=== PATIENT | female | born 1935 | race Caucasian/White ===

== ENCOUNTER → 2016-03-06 09:31 | Day surgery (SDC) | payer MEDICARE, BC ==
[~2016-03-06 09:31] MED LIST: Buffered Lidocaine 1% SYR 3ML* 3 ML/SYR SYRINGE INTRADERM ONE; Buffered Lidocaine 1% SYR 3ML* 3 ML/SYR SYRINGE ONE; Clindamycin 900 MG IVPREMIX(* 900 MG/50 ML SDV IV ONE; Famotidine IV* 10 MG/ML 2 ML (20 mg) IV ONE; Famotidine IV* 10 MG/ML 2 ML (20 mg) ONE; HYDROcodone/ACETAMIN 5-325 MG* 1 TAB PO PRN; Ibuprofen TAB* 600 MG PO PRN; Lidocaine 1% INJ* 10 MG/ML 30 ML SDV ONE; Lidocaine 2% MPF* 2 ML VIAL ONE; Midazolam* 1 MG/ML 5 ML VIAL (5 MG) ONE; Ondansetron INJ* 2 MG/ML VIAL IV PRN; PROCHLORPERAZINE INJ 5 MG/ML 2 ML VIAL IV PRN; Propofol* 10 MG/ML 20 ML BTL IV PUSH ONE; fentaNYL* 50 MCG/ML 2 ML VIAL (100 MCG VIAL) IV PRN; fentaNYL* 50 MCG/ML 2 ML VIAL (100 MCG VIAL) ONE; oxyCODONE/Acetamin 5/325 MG* TAB PO PRN
--- NOTE | 2016-03-06 11:49 | SURGPN ---
Brief Operative Note - Surgery Procedures: Procedures OPERATIVE REPORT PRE-OP: Hepatobiliary cancer POST-OP: Same PROCEDURE: Insertion of 8F left chest wall PowerPort SURGEON: MD Memo ANESTHESIA:Local with MAC Dr. Gore ASST: none IVF: min EBL: min SPECIMEN: none DRAIN: none WOUND CLASS: One COMPLICATIONS: none TO PACU
[2016-03-06 12:24] VITALS: BP 136/63
--- NOTE | 2016-03-06 12:32 | RAD ---
HISTORY: Status post port placement COMPARISONS: January 16, 2016 VIEWS:1: Single frontal portable view of the chest at 12:57 AM FINDINGS: LINES AND TUBES: There is a left-sided chest port from a subclavian approach with the tip overlying the cavoatrial junction. CARDIOMEDIASTINAL SILHOUETTE: The cardiomediastinal silhouette is normal for portable technique. PLEURA: The costophrenic angles are sharp. No pleural abnormalities are noted. There is no appreciable pneumothorax. LUNG PARENCHYMA: The right lung nodules noted on previous examinations is not clearly visible on the submitted images. ABDOMEN: The upper abdomen is clear. There is no subphrenic gas. BONES AND SOFT TISSUES: No bone or soft tissue abnormalities are noted. IMPRESSION: STATUS POST CHEST PORT PLACEMENT
--- NOTE | 2016-03-06 13:22 | RAD ---
CPT II Codes: 6045F INDICATION: Liver cancer TECHNIQUE: Intraoperative fluoroscopy was provided during placement of a left subclavian vein Mediport.. FINDINGS: A single spot film partially visualizes the catheter terminating at the cavoatrial junction. Fluoroscopy time: 55 seconds IMPRESSION: As above.
--- NOTE | 2016-03-09 16:05 | OP ---
AMENDED REPORT TO CORRECT DATE OF OPERATION - ESIGNED BEFORE ADJUSTMENT OPERATIVE REPORT: DATE OF OPERATION: 03/06/16 - SDS DATE OF : 39 SURGEON: Macho Hampton MD PSYCHOLOGICAL OPERATIONS: None. ANESTHESIA: Local with monitored anesthesia care. PRE-OP DIAGNOSIS: Hepatobiliary malignancy. POST-OP DIAGNOSIS: Hepatobiliary malignancy. OPERATIVE PROCEDURE: Insertion of a left chest wall 8-[place] PowerPort, placed percutaneously. ESTIMATED BLOOD LOSS: Minimal. IV FLUIDS: Minimal. SPECIMENS: None. WOUND CLASSIFICATION: I. DESCRIPTION OF PROCEDURE: Written informed consent was obtained, the left chest was marked with indelible ink and the preoperative antibiotics were administered. The patient was taken to the operating room, placed in the supine position. Sequential compression devices were placed in the lower extremity. The left and right chest and neck were prepped and draped in the usual sterile fashion. Time-out verification was completed. Next, 1% lidocaine with epinephrine was infiltrated in the left midclavicular area and the patient was placed in Trendelenburg position and an 18-gauge Cook needle was used to puncture the subclavian vein on the first pass underneath the clavicle. A good blood return was noted and the guidewire was inserted without difficulty and confirmed to be in the superior vena cava by fluoroscopy. Next, additional lidocaine was infiltrated on the left anterior chest and a small transverse incision was made several centimeters below the puncture site and a subcutaneous pocket was made inferiorly, large enough to fit the port. A catheter was then tunneled from the pocket to the puncture site and using a sheath dilator system, the catheter was inserted into the central venous system and the tip was placed at the junction of the superior vena cava in the right atrium. There was good blood return from the catheter and it was cut to the appropriate length and attached to the port in usual fashion. The port was placed to the subcutaneous pocket and it flushed nicely and santos blood with a Acosta needle and was subsequently flushed with heparin. The port was secured to the subcutaneous tissue in its pocket with two separate 2-0 Prolene sutures. The hemostasis was assured and the wound was closed with a running 3-0 and 4-0 Polysorb sutures. Steri-Strips and sterile dressings were applied. The patient tolerated the procedure well and was taken to the recovery room in stable condition. Post-procedural chest x-ray showed the catheter to be in good position without evidence of pneumothorax. CC: [facility]; [facility]; [place]* [id number]/[facility] #: [id number] MTDMaxim
== END | disposition home or self-care (01) ==
LOC: OR 09:31
PROVIDERS: ATTEND Surgery
DX: C22.0 Liver cell carcinoma (principal)
CPT/HCPCS: 71010; 76000; C1788; J1642; J2250; J2704; J3010

== ENCOUNTER 2017-09-11 19:34 | Emergency (ER) | payer MEDICARE, BC ==
[2017-09-11] MEDS ORDERED: NS 0.9% 1000 ML* 1,000 ML IV ONE (20:57)
[2017-09-11] MEDS ORDERED: Acetaminophen TAB* 325 MG PO ONE (20:57)
[2017-09-11] MEDS ORDERED: Vancomycin(*) 1,000 MG in NS 0.9% 250 ML* 250 ML IVPB ONE (20:58)
[2017-09-11] MEDS ORDERED: Piperacillin/Tazobac ADVAN(*) 3.375 GM in NS 0.9% 100 ML* 100 ML IVPB ONE (20:58)
[2017-09-11 21:57] LABS: ABS Basophils 0 10^3/ul (0-0.2); ABS Eosinophils 0.1 10^3/ul (0-0.6); ABS Lymphocytes 0.7 10^3/ul (1.0-4.8); ABS Monocytes 0.7 10^3/ul (0-0.8); ABS Neutrophils 5.2 10^3/ul (1.5-7.7); ABS Nucleated RBC 0 10^3/ul; Eosinophil % 1.4 % (0-6); Hematocrit 30 % (35-47); Hemoglobin 10.3 g/dl (12.0-16.0); Lymphocyte % 10.2 % (25-47); Mean Corpuscular HGB Conc 34 g/dl (31-36); Mean Corpuscular Hemoglobin 35 pg (27-31); Mean Corpuscular Volume 103 fL (80-97); Mean Platelet Volume 8.5 um3 (7.4-10.4); Nucleated Red Blood Cells % 0; Platelet Count 115 10^3/ul (150-450); Red Blood Count 2.94 10^6/ul (4.00-5.40); Red Cell Distribution Width 20 % (10.5-15); White Blood Count 6.7 10^3/ul (3.5-10.8)
[2017-09-11 22:06] LABS: INR 0.98 (0.77-1.02)
[2017-09-11 22:16] LABS: EGFR Non-African American 60.2 (>60)
[2017-09-11] MEDS ORDERED: Potassium Chlor TAB* 20 MEQ TAB.ER PO ONE (22:21)
--- NOTE | 2017-09-11 22:53 | ED ---
HPI Febrile Illness - HPI Summary HPI Summary: This is scrleanne Robbcastillo Johnston documenting for attending Dr. Sylvain Fan MD. A 82 y/o female presents to ED c/o fever and intermittent coughing. As per triage, "Patient reports fever, fatigue and generally feeling poor. Last chemo treatment 08/26. Sent by oncology for further evaluation". According to the patient, she has spiked a fever of 106 F, however, it has resolved since as it went down to 100.6 F. Pt denies any vomit and abdominal pain. She describes the cough as "tingling attacks" that comes an goes. Additionally, it was noted that sneezing has been coupled with the cough. Patient does not take any allergy meds or any current medications. Blood tested on Wednesday. - History of Current Complaint Chief Complaint: EDFever Time Seen by Provider: 09/11/17 20:38 Hx Obtained From: Patient Onset/Duration: Started Days Ago Timing: Intermittent Current Severity: None Pain Intensity: 0 Pain Scale Used: 0-10 Numeric Aggravating Factors: Nothing Alleviating Factors: Nothing Associated Signs and Symptoms: Cough, Other: - Fever and sneezing - Allergy/Home Medications Allergies/Adverse Reactions: Allergies Allergy/AdvReac Type Severity Reaction Status Date / Time latex Allergy Severe Rash And Verified 07/20/17 14:51 Itching Perfume Allergy Severe Vomiting Verified 12/02/16 10:23 phenylbutazone Allergy Severe Swelling Verified 07/20/17 14:52 Of Face,Lips,& Throat Sulfa (Sulfonamide Allergy Intermediate Rash Verified 07/20/17 14:53 Antibiotics) Adhesive Tape Allergy Rash Verified 12/02/16 10:24 soy AdvReac Intermediate See Comment Verified 07/20/17 14:55 cats, dogs Allergy Intermediate Sneezing Uncoded 12/02/16 10:25 dairy Allergy Intermediate GI Upset Uncoded 12/02/16 10:26 SULFONAMIDE EYE DROP Allergy Intermediate Eyes Uncoded 12/02/16 10:26 Itchy/Swollen/Red/Watery tomatoes Allergy Intermediate Rash And Uncoded 12/02/16 10:27 Itching cris Allergy Mild Tingling Uncoded 12/02/16 10:27 beer Allergy Tingling Uncoded 12/02/16 10:28 TEGADERM Allergy Rash And Uncoded 12/02/16 10:28 Itching PMH/Surg Hx/FS Hx/Imm Hx Endocrine/Hematology History: Reports: Hx Thyroid Disease Denies: Hx Diabetes Cardiovascular History: Denies: Hx Congestive Heart Failure, Hx Hypertension, Hx Pacemaker/ICD Respiratory History: Reports: Other Respiratory Problems/Disorders - LUNG BIOPSY 01/15/16 Denies: Hx Asthma, Hx Chronic Obstructive Pulmonary Disease (COPD) GI History: Reports: Hx Gastroesophageal Reflux Disease - on meds, Hx Ulcer - 1990 History: Denies: Hx Dialysis, Hx Renal Disease Musculoskeletal History: Reports: Hx Arthritis Sensory History: Reports: Hx Contacts or Glasses Denies: Hx Hearing Aid Opthamlomology History: Reports: Hx Contacts or Glasses Psychiatric History: Reports: Hx Anxiety Denies: Hx Panic Disorder - Cancer History Cancer Type, 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 RT KNEE ARTHROSCOPIC 2003. VITRECTOMY left eye 01/2014, lung biopsy right. PORT 2016. LIVER BIOPSY 12/2015 Hx Anesthesia Reactions: No - Immunization History Date of Tetanus Vaccine: up to date, 2009 Date of Influenza Vaccine: 2015 Infectious Disease History: No Infectious Disease History: Reports: Hx Hepatitis - type A when 19 Denies: Hx Human Immunodeficiency Virus (HIV), History Other Infectious Disease, Traveled Outside the [place] in Last 30 Days - Family History Known Family History: Negative: Diabetes Family History: Denies FHx of breast cancer - Social History Alcohol Use: None Hx Substance Use: No Substance Use Type: Reports: None Hx Tobacco Use: Yes Smoking Status (MU): Former Smoker Type: Cigarettes Amount Used/How Often: social smoker Have You Smoked in the Last Year: No Review of Systems Positive: Fever Positive: Other - POSITIVE: Sneezing Positive: Cough Negative: Abdominal Pain, Vomiting All Other Systems Reviewed And Are Negative: Yes Physical Exam - Summary Physical Exam Summary: GENERAL: Patient is a well-developed and nourished female who is lying comfortable in the stretcher. Patient is not in any acute respiratory distress. HEAD AND FACE: No signs of trauma. No ecchymosis, hematomas or skull depressions. No sinus tenderness. EYES: PERRLA, EOMI x 2, No injected conjunctiva, no nystagmus. EARS: Hearing grossly intact. Ear canals and tympanic membranes are within normal limits. MOUTH: Oropharynx within normal limits. NECK: Supple, trachea is midline, no adenopathy, no JVD, no carotid bruit, no c- spine tenderness, neck with full ROM. CHEST: Symmetric, no tenderness at palpation LUNGS: Clear to auscultation bilaterally. No wheezing or crackles. CVS: Regular rate and rhythm, S1 and S2 present, no murmurs or gallops appreciated. ABDOMEN: Soft, non-tender. No signs of distention. No rebound no guarding, and no masses palpated. Bowel sounds are normal. EXTREMITIES: FROM in all major joints, no edema, no cyanosis or clubbing. NEURO: Alert and oriented x 3. No acute neurological deficits. Speech is normal and follows commands. SKIN: Dry and warm Triage Information Reviewed: Yes Vital Signs On Initial Exam: Initial Vitals Temp Pulse Resp BP Pulse Ox 100.6 F 94 20 175/65 97 09/11/17 20:00 09/11/17 20:00 09/11/17 20:00 09/11/17 20:00 09/11/17 20:00 Vital Signs Reviewed: Yes Diagnostics - Vital Signs Vital Signs Temp Pulse Resp BP Pulse Ox 09/11/17 20:00 100.6 F 94 20 175/65 97 - Laboratory Lab Results: Lab Results 09/11/17 09/11/17 09/11/17 Range/Units 21:34 21:34 21:34 WBC 6.7 (3.5-10.8) 10^3/ul RBC 2.94 L (4.00-5.40) 10^6/ul Hgb 10.3 L (12.0-16.0) g/dl Hct 30 L (35-47) % MCV 103 H (80-97) fL MCH 35 H (27-31) pg MCHC 34 (31-36) g/dl RDW 20 H (10.5-15) % Plt Count 115 L (150-450) 10^3/ul MPV 8.5 (7.4-10.4) um3 Neut % (Auto) 77.3 (38-83) % Lymph % (Auto) 10.2 L (25-47) % Clinton % (Auto) 10.4 H (0-7) % Eos % (Auto) 1.4 (0-6) % Baso % (Auto) 0.7 (0-2) % Absolute Neuts (auto) 5.2 (1.5-7.7) 10^3/ul Absolute Lymphs (auto) 0.7 L (1.0-4.8) 10^3/ul Absolute Monos (auto) 0.7 (0-0.8) 10^3/ul Absolute Eos (auto) 0.1 (0-0.6) 10^3/ul Absolute Basos (auto) 0 (0-0.2) 10^3/ul Absolute Nucleated RBC 0 10^3/ul Nucleated RBC % 0 INR (Anticoag Therapy) 0.98 (0.77-1.02) APTT 38.9 H (26.0-36.3) seconds Sodium 134 L (135-145) mmol/L Potassium 3.3 L (3.5-5.0) mmol/L Chloride 99 L (101-111) mmol/L Carbon Dioxide 28 (22-32) mmol/L Anion Gap 7 (2-11) mmol/L BUN 11 (6-24) mg/dL Creatinine 0.90 (0.51-0.95) mg/dL Est GFR ( Amer) 72.9 (>60) Est GFR (Non-Af Amer) 60.2 (>60) BUN/Creatinine Ratio 12.2 (8-20) Glucose 108 H (70-100) mg/dL Lactic Acid (0.5-2.0) mmol/L Calcium 9.7 (8.6-10.3) mg/dL Total Bilirubin 0.60 (0.2-1.0) mg/dL AST 62 H (13-39) U/L ALT 35 (7-52) U/L Alkaline Phosphatase 128 H (34-104) U/L Total Protein 6.8 (6.4-8.9) g/dL Albumin 3.9 (3.2-5.2) g/dL Globulin 2.9 (2-4) g/dL Albumin/Globulin Ratio 1.3 (1-3) //18 Range/Units 21:34 WBC (3.5-10.8) 10^3/ul RBC (4.00-5.40) 10^6/ul Hgb (12.0-16.0) g/dl Hct (35-47) % MCV (80-97) fL MCH (27-31) pg MCHC (31-36) g/dl RDW (10.5-15) % Plt Count (150-450) 10^3/ul MPV (7.4-10.4) um3 Neut % (Auto) (38-83) % Lymph % (Auto) (25-47) % Clinton % (Auto) (0-7) % Eos % (Auto) (0-6) % Baso % (Auto) (0-2) % Absolute Neuts (auto) (1.5-7.7) 10^3/ul Absolute Lymphs (auto) (1.0-4.8) 10^3/ul Absolute Monos (auto) (0-0.8) 10^3/ul Absolute Eos (auto) (0-0.6) 10^3/ul Absolute Basos (auto) (0-0.2) 10^3/ul Absolute Nucleated RBC 10^3/ul Nucleated RBC % INR (Anticoag Therapy) (0.77-1.02) APTT (26.0-36.3) seconds Sodium (135-145) mmol/L Potassium (3.5-5.0) mmol/L Chloride (101-111) mmol/L Carbon Dioxide (22-32) mmol/L Anion Gap (2-11) mmol/L BUN (6-24) mg/dL Creatinine (0.51-0.95) mg/dL Est GFR ( Amer) (>60) Est GFR (Non-Af Amer) (>60) BUN/Creatinine Ratio (8-20) Glucose (70-100) mg/dL Lactic Acid 0.7 (0.5-2.0) mmol/L Calcium (8.6-10.3) mg/dL Total Bilirubin (0.2-1.0) mg/dL AST (13-39) U/L ALT (7-52) U/L Alkaline Phosphatase (34-104) U/L Total Protein (6.4-8.9) g/dL Albumin (3.2-5.2) g/dL Globulin (2-4) g/dL Albumin/Globulin Ratio (1-3) Result Diagrams: 09/11/17 21:34 09/11/17 21:34 Lab Statement: Any lab studies that have been ordered have been reviewed, and results considered in the medical decision making process. - Radiology CXR Radiology Interpretation Completed By: ED Physician - NO ACUTE PROCESS. Course/Dx - Course Course Of Treatment: A 82 y/o female patient comes to ER for fever and cough. Unremarkable PE, CXR and lab work. No liquid cytosis. Patient had a urine and blood culture done. Patient will be discharged home with a diagnosis of fever. Patient is to follow up with oncologist, Dr. Powell, on Wednesday. Patient does not need antibiotics or admission to the hospital at this time. - Diagnoses Provider Diagnoses: Fever Discharge - Sign-Out/Discharge Documenting (check all that apply): Patient Departure - DISCHARGE - Discharge Plan Condition: Stable Disposition: HOME Patient Education Materials: Fever in Adults (ED) Referrals: Lucio Sandoval MD [Primary Care Provider] - Dick Powell MD [Medical Doctor] - 1 Day Additional Instructions: FOLLOW UP WITH DR. POWELL ON WEDNESDAY. RETURN TO ED FOR ANY NEW OR WORSENING SYMPTOMS.
[2017-09-12 00:47] LABS: Urine Appearance Clear; Urine Blood Negative (Negative); Urine Color Yellow; Urine Ketones Negative (Negative); Urine Protein Negative (Negative); Urine Red Blood Cell 1+(3-5/hpf) (Absent); Urine Specific Gravity 1.008 (1.010-1.030); Urine Urobilinogen Negative (Negative); Urine White Blood Cell Trace(0-5/hpf) (Absent)
[2017-09-12 02:25] VITALS: BP 131/77
--- NOTE | 2017-09-12 11:04 | RAD ---
Indication: Fever. Fatigue. On chemotherapy. Intrahepatic bile duct carcinoma. Comparison: September 09, 2017 CT. Technique: Upright AP 2129 hours Report: Tip of LEFT chest port at level of superior vena cava RIGHT atrial junction. Unchanged parenchymal scarring at the RIGHT lung apex. No pulmonary infiltrate, pleural effusion, or pneumothorax evident. The heart, pulmonary vasculature, and mediastinal contours are unremarkable. Negative for free air beneath the diaphragm. IMPRESSION: #. No radiographic evidence for pneumonia or other acute pulmonary or cardiac process. R0
== END 2017-09-12 02:24 | disposition home or self-care (01) ==
LOC: ED 19:34
DX: R50.9 Fever, unspecified (principal); R05 Cough; Z87.891 Personal history of nicotine dependence
CPT/HCPCS: 36415; 71045; 80053; 81003; 81015; 83605; 85025; 85610; 85730; 87040; 87086; 99283; A9270-GY; J2543; J3370

== ENCOUNTER 2017-10-03 21:09 | Emergency (ER) | payer MEDICARE, BC ==
--- OUTSIDE RECORDS SUMMARY | 2017-10-03 21:19 | XMS REPORT ---
:1935 External Reference #:[id number] Author Organization [facility] Address [address] [place] [address] Phone [phone] Care Team Providers Name Role Phone Lucio Sandoval M.D. Primary Care Physician Unavailable Payers Type Date Identification Numbers Payment Provider Subscriber Medicare Primary Effective: Policy Number: Medicare - NGS Leandra Mcdaniel 1999 [id number] PayID: [id number] [address] [place] [address] [facility] Policy Number: [id number] [facility] Leandra Mcdaniel Plan PayID: [id number] [address] [address] [place] [address] Problems Date Description Provider Status Onset: Environmental allergy Active Onset: Hypothyroidism Active Onset: Arthritis Active Onset: Gastric ulcer Active Onset: 08/10/2014 Open angle with borderline findings Saul Baker M.D. Active Onset: 08/10/2014 Pseudophakia Saul Baker M.D. Active Onset: 01/23/2015 Presbyopia Marguerite Vicente O.D. Active Onset: 01/23/2015 Other secondary cataract, right eye Marguerite Vicente O.D. Active Onset: Candidiasis of mouth Active Note: AND THE WHOLE DIGESTIVE TRACT Onset: 06/10/2015 Vitreous degeneration Saul Baker M.D. Active Onset: 07/11/2015 Tear film insufficiency Gisela Aviles O.D. Active Onset: Liver cell carcinoma Active Onset: 01/13/2016 Open-angle glaucoma - borderline Saul Baker M.D. Active Onset: Primary malignant neoplasm of liver Active Onset: Urinary incontinence Inactive Inactive: 06/20/2015 Family History Date Family Member(s) Problem(s) Comments Father No Current Problems Mother Glaucoma Mother Cataract First Brother Glaucoma First Brother Cataract First Brother Retinal Detachment Social History Type Date Description Comments Marital Status Single Occupation Auto Electrical Technician Work Status Retired ETOH Use Occasionally consumes alcohol Smoking Patient has never smoked Recreational Drug Use Denies Drug Use Daily Caffeine Consumes on average 2 cups of hot tea per day Allergies, Adverse Reactions, Alerts Date Description Reaction Status Severity Comments 08/10/2014 Sulfa Antibiotics active 08/10/2014 Butazolidin active 08/10/2014 Environmental active 08/10/2014 Soy active 08/10/2014 Dairy active 08/10/2014 Tomatoes active 08/10/2014 [place] active 01/23/2015 Latex Urticaria active 01/23/2015 Adhesives active 09/23/2017 Tegrin Medicated active Medications Medication Date Status Form Strength Qnty SIG Indications Ordering Provider Cod Liver Oil 05/19/ Active Capsules 1000mg every Saul Luanne 2015 day Samia Baker Zaditor 08/09/ Active Solution 0.025% 5ml 1 drop Saul Stroud 2014 both rory Baker M.D. twice a day as needed Synthroid / Active Tablets 112mcg Unknown 0000 Nizatidine / Active Capsules 300mg Unknown 0000 Oxybutynin / Active Tablets 5mg Unknown Chloride 0000 Metronidazole / Active Cream 0.75% Unknown 0000 Fexofenadine HCL / Active Tablets 180mg Unknown 0000 Aspirin / Active Tablets DR 81mg Unknown 0000 Magnesium / Active Tablets 500mg Unknown 0000 Astelin / Active Solution 137mcg/Spr Unknown 0000 ay Albuterol / Active Nebulizer 0.63mg/3ML Unknown Sulfate 0000 Epipen 2-Oscar / Active Solution 0.3mg/0.3M Unknown 0000 Auto-Inject L Calcium 1000 + D 00/00/ Active Tablets 1000-800mg Unknown 0000 -Unit Tylenol 00/00/ Active Tablets ER 650mg Unknown Arthritis Pain 0000 Probiotic / Active Capsules Unknown 0000 Mirtazapine 0000/ Active Tablets 15mg Unknown 0000 Biotin /00/ Active Tablets 1000mcg every Unknown 0000 day Citracal Plus 00// Active Tablets every Unknown 0000 day Vitamin C 00// Active Capsules 500mg every Unknown 0000 day Zinc Picolinate / Active Tablets 25mg every Unknown 0000 day Alendronate / Active Tablets 70mg Unknown Sodium 0000 Spironolactone / Active Tablets 25mg Unknown 0000 Vitamin B12 / Active Tablets ER 1000mcg Unknown 0000 B Complex / Active Capsules Unknown 0000 Furosemide / Active Tablets 20mg Unknown 0000 Systane / Active Solution 0.4-0.3% as Saul Stroud 0000 needed Samia Baker Ibuprofen 08/10/ Hx Tablets 2Oomg Saul Baker 01/22/ MKeyonna 2014 Vitamin B12 08/10/ Hx Tablets 1000mcg Saul Baker, 01/23/ MCarieDCarie 2014 Biotin 5000 08/10/ Hx Capsules 1000mcg 1 by Saul Stroud 2014 - mouth Samuel, 01/23/ M.D. 2014 day Calcium Citrate 08/10/ Hx Tablets 400mg Saul Baker, 01/22/ M.DCarie 2014 Montelukast /00/ Hx Tablets 10mg Unknown Sodium - 2015 Glucosamine & / Hx Packet [id number] Unknown Chondroiti 0000 - 800mg-mg-U N/Vitamin D Maximum Strength 2015 [place] Oil // Hx Capsules 1000mg Unknown - 2015 Tramadol HCL / Hx Tablets 50mg Unknown - 2015 Biotin 5000 00/ Hx Capsules 1000mcg 1 by Unknown 0000 - mouth 01/22/ 2014 day Ibuprofen /00/ Hx Tablets 2Oomg Unknown - 2015 Vitamin B12 /00/ Hx Tablets 1000mcg Unknown 0000 - 2014 Nystatin // Hx Powder [id number] Unknown 0000 - /GM 2015 Vital Signs Date Vital Result Comment 06/10/2015 BP Systolic 110 mmHg BP Diastolic 60 mmHg Heart Rate 70 /min Respiratory Rate 15 /min Results Description No Information Procedures Date CPT Code Description Status 09/21/2016 57135 Determination Of Refractive State Completed 09/21/2016 63727 Est Patient Comprehensive Exam Completed 01/13/2016 50697 Est Patient Comprehensive Exam Completed 01/13/2016 519 Eyeglass Kennel Keeper Completed 07/11/2015 96646 Est Patient Intermediate Exam Completed 06/20/2015 95297 Est Patient Intermediate Exam Completed 06/10/2015 42344 Est Patient Intermediate Exam Completed 06/10/2015 24736 Remove Secondary Cataract, Laser (Yag) Completed 05/21/2015 09382 Est Patient Intermediate Exam Completed 01/23/2015 86624 Determination Of Refractive State Completed 01/23/2015 63656 Est Patient Comprehensive Exam Completed 08/10/2014 14345 Pachymetry Completed 08/10/2014 26376 Est Patient Comprehensive Exam Completed 08/10/2014 46568 Determination Of Refractive State Completed 08/10/2014 62076 Visual Field Exam Extended Completed 08/10/2014 08047 Scanning Computerized Ophthalmic Diagnostic Imag Completed Posterior Seg On 12/04/2013 90229 Est Patient Comprehensive Exam Completed 11/23/2013 605 Cleaning Cloth Completed 11/23/2013 519 Eyeglass Kennel Keeper Completed 07/04/2013 01548 Est Patient Comprehensive Exam Completed 08/09/2012 519 Eyeglass Kennel Keeper Completed 01/25/2012 21428 Determination Of Refractive State Completed 01/25/2012 55139 Est Patient Comprehensive Exam Completed 02/25/2011 82787 Extracapsular Cataract Extraction W/Intraocular Lens Completed 01/07/2011 57397 Extracapsular Cataract Extraction W/Intraocular Lens Completed 12/30/2010 48350 Ophthalmic Biometry Completed 12/30/2010 27918 Scanning Computerized Opthalmic Diagnostic Posterior Completed Seg Retina 12/30/2010 80778 Computerized Corneal Topography Completed 12/23/2010 45067 Est Patient Comprehensive Exam Completed 12/23/2010 519 Eyeglass Kennel Keeper Completed 12/12/2009 72825 Determination Of Refractive State Completed 12/12/2009 17043 Est Patient Comprehensive Exam Completed 06/17/2009 519 Eyeglass Kennel Keeper Completed 12/11/2008 67546 Est Patient Comprehensive Exam Completed 12/11/2008 95248 Determination Of Refractive State Completed 10/25/2007 12878 Determination Of Refractive State Completed 10/25/2007 97444 Est Patient Comprehensive Exam Completed 12/31/2006 06433 Determination Of Refractive State Completed 12/31/2006 22346 Est Patient Comprehensive Exam Completed 08/12/2005 36237 Determination Of Refractive State Completed 08/12/2005 30115 Est Patient Comprehensive Exam Completed 10/06/2004 60520 Recheck Completed 08/04/2004 67260 Determination Of Refractive State Completed 08/04/2004 06866 Est Patient Comprehensive Exam Completed 06/22/2003 16073 Determination Of Refractive State Completed 06/22/2003 86831 Est Patient Comprehensive Exam Completed Encounters Type Date Location Provider CPT E/M Dx Office Visit 02/12/2011 12:30p Saul Baker MD, Saul Baker, [address] 366.16 ted [place] Office Visit 12/30/2010 11:15a Saul Baker MD, Saul Baker, [address] 366.16 ted [place] 366.16 Plan of Care 09/23/2017 - Saul Baker M.D.H40.013 Open angle with borderline findings, low risk, bilateralComments:Smoking can increase the risk of developing or worsening any eye related disease, as well as affect your overall health. If you are a smoker, we strongly recommend that you quit.If you are not a smoker, we strongly recommend that you do not start.Follow up:1 Year Follow Up You can expect to have your eyes dilated at your next visit. If Dr. Baker orders any additional testing, it may require extra time. We recommend that you bring sunglasses, as dilationdrops often make you light sensitive until they wear off. We always recommend you bring someone to drive you home if you are uncomfortable driving with your eyes dilated. 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
--- NOTE | 2017-10-03 21:23 | UC ---
Complaint Female HPI - HPI Summary HPI Summary: 82 yo female presents accompanied by daughter with urinary symptoms. Pt tells me that for the last 2 days she has had urinary pressure and burning with an odor to her urine. She is very worried because she is undergoing chemotherapy currently and was told that anytime she thinks she may have an infection to be evaluated immediately. She also tells me that she wears adult diapers and sometimes will have stool seepage into these - is wondering if this is what caused her ?UTI. Last night noticed some low back pain. Denies fever, chills, hematuria, abdominal pain, n/v, or vaginal discharge. - History Of Current Complaint Stated Complaint: POSS UTI Time Seen by Provider: 10/03/17 21:23 Hx Obtained From: Patient Onset/Duration: Gradual Onset Timing: Constant Severity Initially: Mild Severity Currently: Mild Pain Intensity: 3 Pain Scale Used: 0-10 Numeric - Allergies/Home Medications Allergies/Adverse Reactions: Allergies Allergy/AdvReac Type Severity Reaction Status Date / Time latex Allergy Severe Rash And Verified 10/03/17 21:31 Itching Perfume Allergy Severe Vomiting Verified 10/03/17 21:31 phenylbutazone Allergy Severe Swelling Verified 10/03/17 21:31 Of Face,Lips,& Throat Sulfa (Sulfonamide Allergy Intermediate Rash Verified 10/03/17 21:31 Antibiotics) Adhesive Tape Allergy Rash Verified 10/03/17 21:31 soy AdvReac Intermediate See Comment Verified 10/03/17 21:31 cats, dogs Allergy Intermediate Sneezing Uncoded 10/03/17 21:31 dairy Allergy Intermediate GI Upset Uncoded 10/03/17 21:31 SULFONAMIDE EYE DROP Allergy Intermediate Eyes Uncoded 10/03/17 21:31 Itchy/Swollen/Red/Watery tomatoes Allergy Intermediate Rash And Uncoded 10/03/17 21:31 Itching cris Allergy Mild Tingling Uncoded 12/02/16 10:27 beer Allergy Tingling Uncoded 12/02/16 10:28 TEGADERM Allergy Rash And Uncoded 12/02/16 10:28 Itching PMH/Surg Hx/FS Hx/Imm Hx - Additional Past Medical History Additional PMH: Cancer Overactive bladder Endocrine History: Hypothyroidism - Surgical History Surgical History: Yes Surgery Procedure, Year, and Place: CATARACTS BILATERAL EYES. RT KNEE ARTHROSCOPIC 2003. VITRECTOMY left eye 01/2014, lung biopsy right. PORT 2016. LIVER BIOPSY 12/2015 - Family History Known Family History: Negative: Diabetes Family History: Denies FHx of breast cancer - Social History Occupation: Retired Lives: With Family Alcohol Use: None Substance Use Type: None Smoking Status (MU): Former Smoker Type: Cigarettes Amount Used/How Often: social smoker Have You Smoked in the Last Year: No - Immunization History Most Recent Influenza Vaccination: 2013 Most Recent Tetanus Shot: up to date Most Recent Pneumonia Vaccination: at age 64 Review of Systems Constitutional: Negative Skin: Negative Respiratory: Negative Cardiovascular: Negative Genitourinary: Dysuria, Frequency, Urgency Neurovascular: Negative Neurological: Negative Psychological: Negative All Other Systems Reviewed And Are Negative: Yes Physical Exam - Summary Physical Exam Summary: GENERAL: NAD. WDWN. No pain distress. SKIN: No rashes, sores, lesions, or open wounds. NECK: Supple. Nontender. No lymphadenopathy. CHEST: No accessory muscle use. Breathing comfortably and in no distress. CV: Pulses intact. Brisk cap refill. ABDOMEN: Soft. NTTP. No distention or guarding. No CVA tenderness. Bowel sounds present NEURO: Alert. CN II-XII grossly intact. PSYCH: Age appropriate behavior. Triage Information Reviewed: Yes Vital Signs: Vital Signs: Temp Pulse Resp BP Pulse Ox 97.4 F 89 16 158/69 99 10/03/17 21:22 10/03/17 21:22 10/03/17 21:22 10/03/17 21:22 10/03/17 21:22 Complaint Female Dx - Course Course Of Treatment: UA with trace leuks and trace blood. Will treat for UTI with keflex and send for culture. - Differential Dx/Diagnosis Provider Diagnoses: UTI Discharge - Sign-Out/Discharge Documenting (check all that apply): Patient Departure - Discharge Plan Condition: Stable Disposition: HOME Prescriptions: Cephalexin CAP* [Keflex CAP*] 500 mg PO BID #10 cap Patient Education Materials: Urinary Tract Infection in Women (DC) Referrals: Lucio Sandoval MD [Primary Care Provider] - Additional Instructions: If you develop a fever, shortness of breath, chest pain, new or worsening symptoms - please call your PCP or go to the ED. Your blood pressure was high at todays visit. Please see your primary provider within 4 weeks for recheck and re-evaluation. - Billing Disposition and Condition Condition: STABLE Disposition: Home
[2017-10-03 21:30] VITALS: BP 158/69
[2017-10-03] MEDS ORDERED: Cephalexin CAP* 500 MG PO ONE (21:47)
--- NOTE | 2017-10-05 15:25 | UC ---
- Progress Note Progress Note: Urine culture final with no growth. If pt is feeling better - please continue antibiotics. If not change - needs f/u with PCP or her oncologist Discharge - Sign-Out/Discharge Documenting (check all that apply): Post-Discharge Follow Up - Discharge Plan Condition: Stable Disposition: HOME Prescriptions: Cephalexin CAP* [Keflex CAP*] 500 mg PO BID #10 cap Patient Education Materials: Urinary Tract Infection in Women (DC) Referrals: Lucio Sandoval MD [Primary Care Provider] - Additional Instructions: If you develop a fever, shortness of breath, chest pain, new or worsening symptoms - please call your PCP or go to the ED. Your blood pressure was high at todays visit. Please see your primary provider within 4 weeks for recheck and re-evaluation. - Billing Disposition and Condition Condition: STABLE Disposition: Home
== END 2017-10-03 21:58 | disposition home or self-care (01) ==
LOC: UCEAST 21:09
DX: N39.0 Urinary tract infection, site not specified (principal); E03.9 Hypothyroidism, unspecified
CPT/HCPCS: 81003; 87086; 99212; A9270-GY; G0463

== ENCOUNTER 2017-10-10 18:59 | Emergency (ER) | payer MEDICARE, BC ==
[2017-10-10] MEDS ORDERED: Lactated Ringers 1000 ml Bag*IV.FLUID IV ONE (19:26)
--- NOTE | 2017-10-10 20:05 | ED ---
HPI Febrile Illness - HPI Summary HPI Summary: This is Rich hawkins documenting for attending physician Almas Barrera MD. This patient is a 82 year old F presenting to [facility] accompanied by her with a chief complaint of fever and vaginal pain. The patient rates the pain 1/ 10 in severity. Patient reports palpitations and PONCE. Pt denies SOB while sitting, ABD pain, and headache. Pt current has bile duct cancer and had a blood transfusion 10 days ago, she believes this is causing current sx. Pt had low platelets and could not receive chemo, she got the transfusion in an attempt to elevate these platelets. Pt sees Dr. Powell she contacted him when sx began 10 days ago and she was put on Keflex or a possible UTI, and after a culture showed no bacteria she was taken off abx. She states the highest her fever was 101.6 F. She states she has been coughing for months and informed Dr Powell of this. - History of Current Complaint Chief Complaint: EDFever Time Seen by Provider: 10/10/17 19:52 Hx Obtained From: Patient Hx Last Menstrual Period: post menopause Onset/Duration: Still Present Timing: Constant Initial Severity: Mild Current Severity: Mild Pain Intensity: 1 Pain Scale Used: 0-10 Numeric Associated Signs and Symptoms: Other: - palpitations and PONCE. - Allergy/Home Medications Allergies/Adverse Reactions: Allergies Allergy/AdvReac Type Severity Reaction Status Date / Time latex Allergy Severe Rash And Verified 10/10/17 19:06 Itching Perfume Allergy Severe Vomiting Verified 10/10/17 19:06 phenylbutazone Allergy Severe Swelling Verified 10/10/17 19:06 Of Face,Lips,& Throat Sulfa (Sulfonamide Allergy Intermediate Rash Verified 10/10/17 19:06 Antibiotics) Adhesive Tape Allergy Rash Verified 10/10/17 19:06 soy AdvReac Intermediate See Comment Verified 10/10/17 19:06 cats, dogs Allergy Intermediate Sneezing Uncoded 10/10/17 19:06 dairy Allergy Intermediate GI Upset Uncoded 10/10/17 19:06 SULFONAMIDE EYE DROP Allergy Intermediate Eyes Uncoded 10/10/17 19:06 Itchy/Swollen/Red/Watery tomatoes Allergy Intermediate Rash And Uncoded 10/10/17 19:06 Itching cris Allergy Mild Tingling Uncoded 10/10/17 19:06 beer Allergy Tingling Uncoded 10/10/17 19:06 TEGADERM AdvReac Rash And Uncoded 10/10/17 19:06 Itching Home Medications: Home Medications Alendronate Sodium 1 tab PO DAILY 10/10/17 [History Confirmed 10/10/17] Fluconazole 150 MG (NF) [Diflucan 150 mg (NF)] 1 tab PO DAILY 10/10/17 [History Confirmed 10/10/17] Furosemide 1 tab PO DAILY 10/10/17 [History Confirmed 10/10/17] Levothyroxine Sodium [Synthroid] 1 tab PO DAILY 10/10/17 [History Confirmed ] Magnesium Hydroxide LIQ* [Milk of Magnesia LIQ*] 30 ml PO BID PRN 10/10/17 [ History Confirmed 10/10/17] Mirtazapine 1 tab PO DAILY 10/10/17 [History Confirmed 10/10/17] Nizatidine 1 cap PO BID 10/10/17 [History Confirmed 10/10/17] Oxybutynin Chloride 5 mg PO BID 10/10/17 [History Confirmed 10/10/17] Spironolactone 1 tab PO DAILY 10/10/17 [History Confirmed 10/10/17] PMH/Surg Hx/FS Hx/Imm Hx Endocrine/Hematology History: Reports: Hx Thyroid Disease Denies: Hx Diabetes Cardiovascular History: Denies: Hx Congestive Heart Failure, Hx Hypertension, Hx Pacemaker/ICD Respiratory History: Reports: Other Respiratory Problems/Disorders - LUNG BIOPSY 01/15/16 Denies: Hx Asthma, Hx Chronic Obstructive Pulmonary Disease (COPD) GI History: Reports: Hx Gastroesophageal Reflux Disease - on meds, Hx Ulcer - 1990 History: Denies: Hx Dialysis, Hx Renal Disease Musculoskeletal History: Reports: Hx Arthritis Sensory History: Reports: Hx Contacts or Glasses Denies: Hx Hearing Aid Opthamlomology History: Reports: Hx Contacts or Glasses Psychiatric History: Reports: Hx Anxiety Denies: Hx Panic Disorder - Cancer History Cancer Type, 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 RT KNEE ARTHROSCOPIC 2003. VITRECTOMY left eye 01/2014, lung biopsy right. PORT 2016. LIVER BIOPSY 12/2015 Hx Anesthesia Reactions: No - Immunization History Date of Tetanus Vaccine: up to date, 2009 Date of Influenza Vaccine: 2016 Infectious Disease History: No Infectious Disease History: Reports: Hx Hepatitis - type A when 19 Denies: Hx Human Immunodeficiency Virus (HIV), History Other Infectious Disease, Traveled Outside the [place] in Last 30 Days - Family History Known Family History: Negative: Diabetes Family History: Denies FHx of breast cancer - Social History Alcohol Use: None Hx Substance Use: No Substance Use Type: Reports: None Hx Tobacco Use: Yes Smoking Status (MU): Former Smoker Type: Cigarettes Amount Used/How Often: social smoker Have You Smoked in the Last Year: No Review of Systems Positive: Palpitations Positive: Cough - months , Other - PONCE . Negative: Shortness Of Breath Negative: Abdominal Pain Negative: Headache All Other Systems Reviewed And Are Negative: Yes Physical Exam - Summary Physical Exam Summary: Appearance: Well appearing, no pain distress Skin: hot and dry, port in the left chest Head/face: normal Eyes: EOMI, FUAD ENT: normal Neck: supple, non-tender Respiratory: fine crackles in the left base Cardiovascular: RRR, pulses symmetrical Abdomen: non-tender, soft Bowel Sounds: present Musculoskeletal: normal, strength/ROM intact, no LE edema Neuro: normal, sensory motor intact, A&Ox3 Triage Information Reviewed: Yes Vital Signs On Initial Exam: Initial Vitals Temp Pulse Resp BP Pulse Ox 99.4 F 100 19 158/82 98 10/10/17 19:02 10/10/17 19:02 10/10/17 19:02 10/10/17 19:02 10/10/17 19:02 Vital Signs Reviewed: Yes Diagnostics - Vital Signs Vital Signs Temp Pulse Resp BP Pulse Ox 10/10/17 19:02 99.4 F 100 19 158/82 98 - Laboratory Result Diagrams: 10/10/17 20:03 10/10/17 20:03 Lab Statement: Any lab studies that have been ordered have been reviewed, and results considered in the medical decision making process. - Radiology CXR Radiology Interpretation Completed By: ED Physician - right basilar pneumonia, pending official report - EKG 2038 Cardiac Rate: NL EKG Rhythm: Sinus Rhythm - at [address] Segment: Non-Specific EKG Interpretation: nml axis Re-Evaluation - Re-Evaluation First Eval Re-Evaluation Time: 21:48 Change: Improved Comment: The patients vitals are stable and she would like to go home. Course/Dx - Course Course Of Treatment: Patient had dysuria recently and fever. She has been coughing for some time. She has a new right basilar infiltrate on x-ray. IV cefepime was given 4 and absolute neutrophil count of approximately 1500. IV fluids are given and patient was feeling much better. She is very well- appearing despite her fever. She is not short of breath nor hypoxic. I discussed the case with the hospitalist who referred me to the oncologist. The oncologist agrees the patient should be discharged with prompt follow-up with him. She will be maintained on oral Levaquin. - Febrile Illness Differential Diagnoses: Other: - Bacteremia, pneumonia, UTI, intra-abdominal infection, sepsis - Diagnoses Provider Diagnoses: Neutropenic fever, Thrombocytopenia, Right lower lobe pneumonia - Provider Notifications Discussed Care Of Patient With: Aubrey Mariscal Time Discussed With Above Provider: 21:35 Instructed by Provider To: Other - He suggested contacting Dr. Powell and inquiring if he would rather have treated with abx as an outpatient. [id number] I discussed the patients case with Dr. Powell. He stated that if the patient feels like going home and loos well she can be d/anthony on Levaquin. Discharge - Sign-Out/Discharge Documenting (check all that apply): Patient Departure - Discharge Plan Condition: Improved Disposition: HOME Prescriptions: Levofloxacin TAB* [Levaquin TAB*] 750 mg PO DAILY #7 tab Patient Education Materials: Community Acquired Pneumonia (ED) Referrals: Dick Powell MD [Medical Doctor] - Lucio Sandoval MD [Primary Care Provider] - Additional Instructions: Return with high fever, difficulty breathing, worse, new symptoms or other concerns as discussed. Call your oncologist first thing in the morning for follow-up. - Billing Disposition and Condition Condition: IMPROVED Disposition: Home Attestation Statement Scribe Attestation: This is Rich hawkins documenting for attending physician Almas Barrera MD. User Type: Provider with Scribe Provider Attestation: The documentation recorded by the scribe accurately reflects the service I personally performed and the decisions made by me.
[2017-10-10 20:12] LABS: ABS Basophils 0 10^3/ul (0-0.2); ABS Eosinophils 0.1 10^3/ul (0-0.6); ABS Lymphocytes 0.8 10^3/ul (1.0-4.8); ABS Monocytes 0.7 10^3/ul (0-0.8); ABS Neutrophils 1.6 10^3/ul (1.5-7.7); ABS Nucleated RBC 0 10^3/ul; Eosinophil % 1.7 % (0-6); Hematocrit 30 % (35-47); Hemoglobin 10.2 g/dl (12.0-16.0); Lymphocyte % 25.9 % (25-47); Mean Corpuscular HGB Conc 34 g/dl (31-36); Mean Corpuscular Hemoglobin 36 pg (27-31); Mean Corpuscular Volume 106 fL (80-97); Mean Platelet Volume 9.4 um3 (7.4-10.4); Nucleated Red Blood Cells % 0.1; Platelet Count 177 10^3/ul (150-450); Red Cell Distribution Width 21 % (10.5-15); White Blood Count 3.2 10^3/ul (3.5-10.8)
[2017-10-10] MEDS ORDERED: Cefepime 2 GM in Dextrose(*) 2 GM/50 ML BAG IV ONE (20:25)
[2017-10-10] MEDS ORDERED: Acetaminophen TAB* 325 MG PO ONE (20:38)
[2017-10-10 21:04] LABS: Urine Appearance Cloudy; Urine Blood 1+ (Negative); Urine Ketones Negative (Negative); Urine Protein Negative (Negative); Urine Red Blood Cell Trace(0-2/hpf) (Absent); Urine Specific Gravity 1.006 (1.010-1.030); Urine Urobilinogen Negative (Negative); Urine White Blood Cell Absent (Absent)
[2017-10-10 21:19] LABS: INR 0.94 (0.77-1.02)
[2017-10-10 22:32] VITALS: BP 121/68
--- NOTE | 2017-10-11 07:16 | RAD ---
HISTORY: fever, cancer COMPARISONS: September 11, 2017 VIEWS: 1: frontal portable view of the chest at 9:14 PM FINDINGS: LINES AND TUBES: A left-sided chest port is noted with the tip overlying the cavoatrial junction. CARDIOMEDIASTINAL SILHOUETTE: The cardiomediastinal silhouette is normal for portable technique. PLEURA: The costophrenic angles are sharp. No pleural abnormalities are noted. LUNG PARENCHYMA: The lungs are clear. ABDOMEN: The upper abdomen is clear. There is no subphrenic gas. BONES AND SOFT TISSUES: No bone or soft tissue abnormalities are noted. IMPRESSION: NO ACTIVE CARDIOPULMONARY DISEASE. R2
== END 2017-10-10 22:29 | disposition home or self-care (01) ==
LOC: ED 18:59
DX: D70.9 Neutropenia, unspecified (principal); R50.81 Fever presenting with conditions classified elsewhere; D69.6 Thrombocytopenia, unspecified; J18.9 Pneumonia, unspecified organism; R00.2 Palpitations; Z87.891 Personal history of nicotine dependence; R05 Cough
CPT/HCPCS: 36415; 71045; 80053; 81003; 81015; 83605; 83880; 84484; 85025; 85610; 85730; 86140; 86850; 86900; 86901; 87040; 93005; 96374; 96375; 99284; A9270-GY; J0692; J1642

== ENCOUNTER 2017-10-29 18:32 | Emergency (ER) | payer MEDICARE, BC ==
[2017-10-29 19:01] VITALS: BP 120/59
--- NOTE | 2017-10-29 19:38 | UC ---
Complaint Female HPI - HPI Summary HPI Summary: 82 year old female presents with complaints of burning with urination, urgency, and urinary frequency. She was recently treated for UTI and pneumonia within the past 3 weeks. History of cholangioma with liver mets. Currently receiving chemo. Last dose 10/27/2017. Denies fever, chills, chest pain, SOB, cough, back/ flank pain, abdominal pain, N/V/D, hematuria, or vaginal discharge. - History Of Current Complaint Chief Complaint: UCGU Stated Complaint: BURNING URINATION Time Seen by Provider: 10/29/17 19:25 Hx Obtained From: Patient Hx Last Menstrual Period: post menopause ?: No Onset/Duration: Sudden Onset Timing: Intermittent Severity Initially: Mild Severity Currently: Mild Pain Intensity: 3 Character: Burning Aggravating Factor(s): Urination Alleviating Factor(s): Nothing Associated Signs And Symptoms: Negative: Fever, Back Pain, Vaginal Bleeding/ Discharge, Nausea, Vomiting(# Of Episodes =), Genital Swelling, Genital Blisters - Allergies/Home Medications Allergies/Adverse Reactions: Allergies Allergy/AdvReac Type Severity Reaction Status Date / Time latex Allergy Severe Rash And Verified 10/29/17 19:01 Itching Perfume Allergy Severe Vomiting Verified 10/29/17 19:01 phenylbutazone Allergy Severe Swelling Verified 10/29/17 19:01 Of Face,Lips,& Throat Sulfa (Sulfonamide Allergy Intermediate Rash Verified 10/29/17 19:01 Antibiotics) Adhesive Tape Allergy Rash Verified 10/29/17 19:01 soy AdvReac Intermediate See Comment Verified 10/29/17 19:01 cats, dogs Allergy Intermediate Sneezing Uncoded 10/10/17 19:06 dairy Allergy Intermediate GI Upset Uncoded 10/10/17 19:06 SULFONAMIDE EYE DROP Allergy Intermediate Eyes Uncoded 10/10/17 19:06 Itchy/Swollen/Red/Watery tomatoes Allergy Intermediate Rash And Uncoded 10/10/17 19:06 Itching cris Allergy Mild Tingling Uncoded 10/10/17 19:06 beer Allergy Tingling Uncoded 10/10/17 19:06 TEGADERM AdvReac Rash And Uncoded 10/10/17 19:06 Itching PMH/Surg Hx/FS Hx/Imm Hx Cardiovascular History: Hypertension Other Cardiovascular History: lower extremity edema GI/ History: Gastroesophageal Reflux Other GI/ History: Overactive bladder Psychological History: Depression Other Cancer History: cholangioma with liver mets - Surgical History Surgical History: Yes Surgery Procedure, Year, and Place: CATARACTS BILATERAL EYES. RT KNEE ARTHROSCOPIC 2003. VITRECTOMY left eye 01/2014, lung biopsy right. PORT 2016. LIVER BIOPSY 12/2015 - Family History Known Family History: Negative: Diabetes Family History: Denies FHx of breast cancer - Social History Occupation: Retired Lives: Alone Alcohol Use: None Substance Use Type: None Smoking Status (MU): Former Smoker Type: Cigarettes Amount Used/How Often: social smoker Have You Smoked in the Last Year: No - Immunization History Most Recent Influenza Vaccination: 2013 Most Recent Tetanus Shot: up to date Most Recent Pneumonia Vaccination: at age 64 Review of Systems Constitutional: Negative Skin: Negative Respiratory: Negative Cardiovascular: Negative Gastrointestinal: Negative Genitourinary: Dysuria, Frequency, Urgency Is Patient Immunocompromised?: Yes - Recent chemo All Other Systems Reviewed And Are Negative: Yes Physical Exam Triage Information Reviewed: Yes Appearance: Well-Appearing, No Pain Distress, Well-Nourished Vital Signs: Initial Vital Signs Temp 98.6 F 10/29/17 18:54 Pulse 82 10/29/17 18:54 Resp 16 10/29/17 18:54 BP 120/59 10/29/17 18:54 Pulse Ox 98 10/29/17 18:54 Vital Signs Reviewed: Yes Respiratory: Positive: No respiratory distress, No accessory muscle use, Crackles - Left base Cardiovascular: Positive: RRR, No Murmur, Pulses Normal, Brisk Capillary Refill Abdomen Description: Positive: Nontender, Soft, Hepatomegaly. Negative: CVA Tenderness (R), CVA Tenderness (L), Distended, Guarding, Splenomegaly Bowel Sounds: Positive: Present Neurological: Positive: Alert Skin Exam: Normal Complaint Female Dx - Course Course Of Treatment: 82 year old female with significant history of cholangioma with liver mets and recent chemotherapy presents for new onset of dyuria, frquency, and urgency. She was recently treated for both UTI and pneumonia within the last 3 weeks. Afebrile. VSS. Urinalysis showed 1+ blood otherwise normal. Plan is to send urine culture and treat as needed especially considering her recent antibioitc use. She has follow up planned with her global logistics manager on Wednesday. Discussed warning symptoms requiring immediate medical evaluation. Verbalizes understanding and agrees with POC. - Differential Dx/Diagnosis Provider Diagnoses: Dysuria Discharge - Sign-Out/Discharge Documenting (check all that apply): Patient Departure All imaging exams completed and their final reports reviewed: No Studies - Discharge Plan Condition: Stable Disposition: HOME Patient Education Materials: Dysuria (ED) Referrals: Lucio Sandoval MD [Primary Care Provider] - 3 Days Additional Instructions: Your urine test in the clinic today showed a trace amount of blood but no evidence of an infection. We will send the urine for culture to see if any bacteria grow out. It will take 48-72 hours to get these results. We will contact you if any treatment as needed. Make sure you drink plenty of fluids. Seek immediate medical attention in the emergency room if you develop fever greater than 100.5 F, has severe abdominal pain, persistent vomiting, or any worsening of symptoms. - Billing Disposition and Condition Condition: STABLE Disposition: Home
== END 2017-10-29 19:59 | disposition home or self-care (01) ==
LOC: UCEAST 18:32
DX: R30.0 Dysuria (principal); Z87.440 Personal history of urinary (tract) infections; C22.1 Intrahepatic bile duct carcinoma; C22.7 Other specified carcinomas of liver; Z91.040 Latex allergy status; Z91.011 Allergy to milk products; Z88.2 Allergy status to sulfonamides; Z88.8 Allergy status to other drugs, medicaments and biological substances; Z91.018 Allergy to other foods; Z91.048 Other nonmedicinal substance allergy status; Z87.891 Personal history of nicotine dependence
CPT/HCPCS: 81003; 87086; 99212; G0463

== ENCOUNTER 2018-07-10 18:10 | Inpatient (IN) | payer MEDICARE, BC ==
--- NOTE | 2018-07-10 18:51 | ED ---
Complex/Multi-Sys Presentation - HPI Summary HPI Summary: This patient is an 83 year old F presenting to [facility] accompanied by family with a chief complaint of fever and fatigue after returning from vacation yesterday. Fever measured at 102F at home. Reports abdominal swelling, frequent urination, and incontinence. PMHx of liver cancer. - History Of Current Complaint Chief Complaint: EDWeakness Time Seen by Provider: 07/10/18 18:34 Hx Obtained From: Patient Onset/Duration: Gradual Onset, Lasting Days Timing: Constant Location: Negative Associated Signs And Symptoms: Positive: Fever, Other - abdominal swelling, urinary frequency, incontinence - Allergies/Home Medications Allergies/Adverse Reactions: Allergies Allergy/AdvReac Type Severity Reaction Status Date / Time latex Allergy Severe Rash And Verified 01/31/18 10:19 Itching Perfume Allergy Severe Vomiting Verified 01/31/18 10:19 phenylbutazone Allergy Severe Swelling Verified 01/31/18 10:19 Of Face,Lips,& Throat Sulfa (Sulfonamide Allergy Intermediate See Comment Verified 03/02/18 09:26 Antibiotics) Adhesive Tape Allergy Rash Verified 01/31/18 10:19 alcohol Allergy Tingling Verified 03/02/18 09:24 cat dander Allergy Sneezing Verified 01/31/18 10:19 dog dander Allergy Sneezing Verified 01/31/18 10:19 hops Allergy Tingling Verified 01/31/18 10:19 lactose Allergy GI Upset Verified 01/31/18 10:19 cris Allergy Tingling Verified 01/31/18 10:19 silver Allergy Rash And Verified 01/31/18 10:19 [From Tegaderm AG Mesh] Itching tomato Allergy Rash And Verified 01/31/18 10:19 Itching soy AdvReac Intermediate See Comment Verified 01/31/18 10:19 dairy Allergy Intermediate GI Upset Uncoded 01/31/18 10:19 Home Medications: Home Medications Klor-Con 20 meq PO DAILY 07/10/18 [History Confirmed 07/10/18] PMH/Surg Hx/FS Hx/Imm Hx Endocrine/Hematology History: Reports: Hx Thyroid Disease Denies: Hx Diabetes Cardiovascular History: Denies: Hx Congestive Heart Failure, Hx Hypertension, Hx Pacemaker/ICD Respiratory History: Reports: Other Respiratory Problems/Disorders - LUNG BIOPSY 01/15/16 Denies: Hx Asthma, Hx Chronic Obstructive Pulmonary Disease (COPD) GI History: Reports: Hx Gastroesophageal Reflux Disease - on meds, Hx Ulcer - 1990 History: Denies: Hx Dialysis, Hx Renal Disease Musculoskeletal History: Reports: Hx Arthritis Sensory History: Reports: Hx Contacts or Glasses Denies: Hx Hearing Aid Opthamlomology History: Reports: Hx Contacts or Glasses Psychiatric History: Reports: Hx Anxiety Denies: Hx Panic Disorder - Cancer History Cancer Type, 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 RT KNEE ARTHROSCOPIC 2003. VITRECTOMY left eye 01/2014, lung biopsy right. PORT 2016. LIVER BIOPSY 12/2015 Hx Anesthesia Reactions: No - Immunization History Date of Tetanus Vaccine: up to date, 2009 Date of Influenza Vaccine: 2015 Infectious Disease History: No Infectious Disease History: Reports: Hx Hepatitis - type A when 19 Denies: Hx Human Immunodeficiency Virus (HIV), History Other Infectious Disease, Traveled Outside the [place] in Last 30 Days - Family History Known Family History: Negative: Diabetes Family History: Denies FHx of breast cancer - Social History Alcohol Use: None Hx Substance Use: No Substance Use Type: Reports: None Hx Tobacco Use: Yes Smoking Status (MU): Former Smoker Type: Cigarettes Amount Used/How Often: social smoker Have You Smoked in the Last Year: No Review of Systems Positive: Fever Positive: Other - abdominal swelling Positive: frequency, incontinence All Other Systems Reviewed And Are Negative: Yes Physical Exam - Summary Physical Exam Summary: Appearance: The patient is well-nourished in no acute distress and in no acute pain. Skin: The skin is warm and dry and skin color reflects adequate perfusion. HEENT: The head is normocephalic and atraumatic. The pupils are equal and reactive. The conjunctivae are clear and without drainage. Nares are patent and without drainage. Mouth reveals moist mucous membranes and the throat is without erythema and exudate. The external ears are intact. The ear canals are patent and without drainage. The tympanic membranes are intact. Neck: The neck is supple with full range of motion and non-tender. There are no carotid bruits. There is no neck vein distension. Respiratory: Chest is non-tender. Lungs are clear to auscultation and breath sounds are symmetrical and equal. Cardiovascular: Heart is regular rate and rhythm. There is no murmur or rub auscultated. There is no peripheral edema and pulses are symmetrical and equal. Abdomen: The abdomen is soft and non-tender. There are normal bowel sounds heard in all four quadrants and there is no organomegaly palpated. Musculoskeletal: There is no back tenderness noted. Extremities are non-tender with full range of motion. There is good capillary refill. There is no peripheral edema or calf tenderness elicited. Neurological: Patient is alert and oriented to person, place and time. The patient has symmetrical motor strength in all four extremities. Cranial nerves are grossly intact. Deep tendon reflexes are symmetrical and equal in all four extremities. Psychiatric: The patient has an appropriate affect and does not exhibit any anxiety or depression Triage Information Reviewed: Yes Vital Signs On Initial Exam: Initial Vitals Temp Pulse Resp BP Pulse Ox 102.7 F 70 18 160/78 97 07/10/18 18:14 07/10/18 18:14 07/10/18 18:14 07/10/18 18:14 07/10/18 18:14 Vital Signs Reviewed: Yes Diagnostics - Vital Signs Vital Signs Temp Pulse Resp BP Pulse Ox 07/10/18 18:14 102.7 F 70 18 160/78 97 - Laboratory Result Diagrams: 07/10/18 19:18 07/10/18 19:18 Lab Statement: Any lab studies that have been ordered have been reviewed, and results considered in the medical decision making process. - Radiology CXR Radiology Interpretation Completed By: ED Physician Summary of Radiographic Findings: No acute processes. - EKG 1910 Cardiac Rate: Tachycardia - 110 BPM EKG Rhythm: Sinus Tachycardia Summary of EKG Findings: Sinus tachycardia. Some Bigeminy. Complex Multi-Symp Course/Dx Course Of Treatment: Ms. Marie presented with fever and fatigue. She has a history of ductal carcinoma with liver metastases and is being followed by Dr. Powell. She is currently getting chemotherapy and scheduled in 2 days. She was nontoxic in appearance and did not meet sepsis criteria. Labs were obtained as well as a chest x-ray and a urinalysis and remarkable only for an indeterminant troponin. She was kept on a monitor which showed frequent ventricular ectopy and bigeminy at times. She drove back from vacation 2 days ago and I'm concerned with the indeterminate troponin and fever that this could represent pulmonary embolism so a CTA is obtained. I asked the hospitalist to evaluate her for admission while awaiting for CT a result. - Diagnoses Provider Diagnoses: Fever, Troponin level elevated, Bigeminy - Critical Care Time Critical Care Time: 30-74 min Discharge - Sign-Out/Discharge Documenting (check all that apply): Patient Departure - admit - Discharge Plan Condition: Stable Disposition: ADMITTED TO [facility] Referrals: Lucio Sandoval MD [Primary Care Provider] - - Billing Disposition and Condition Condition: STABLE Disposition: Admitted to [facility] - Attestation Statements Document Initiated by Amy: Yes Documenting Scribe: Zully Acuna Provider For Whom Amy is Documenting (Include Credential): Dario Glass MD Scribe Attestation: I, Zully Acuna, scribed for Dario Glass MD on 07/10/18 at 2201. Scribe Documentation Reviewed: Yes Provider Attestation: The documentation as recorded by the Zully hawkins accurately reflects the service I personally performed and the decisions made by me, Dario Glass MD Status of Scribe Document: Viewed
[2018-07-10 19:12] LABS: Urine Appearance Cloudy; Urine Bacteria Absent (Absent); Urine Bilirubin Negative (Negative); Urine Blood 1+ (Negative); Urine Color Amber; Urine Glucose Negative (Negative); Urine Ketones Negative (Negative); Urine Nitrite Negative (Negative); Urine Protein Negative (Negative); Urine Red Blood Cell 2+(6-10/hpf) (Absent); Urine Squamous Epithelial Cell Present (Absent); Urine Urobilinogen Negative (Negative); Urine White Blood Cell Trace(0-5/hpf) (Absent)
[2018-07-10 19:40] LABS: ABS Lymphocytes 0.7 10^3/ul (1.0-4.8); ABS Monocytes 0.5 10^3/ul (0-0.8); ABS Neutrophils 2.4 10^3/ul (1.5-7.7); Eosinophil % 0.7 %; Hematocrit 28 % (35-47); Hemoglobin 9.4 g/dL (12.0-16.0); Lymphocyte % 19.6 %; Mean Corpuscular HGB Conc 34 g/dL (31-36); Mean Corpuscular Hemoglobin 37 pg (27-31); Mean Corpuscular Volume 110 fL (80-97); Mean Platelet Volume 9.1 fL (7.4-10.4); Nucleated Red Blood Cells % 0.1; Red Blood Count 2.56 10^6 /uL (3.70-4.87); Red Cell Distribution Width 19 % (10.5-15); White Blood Count 3.7 10^3/uL (3.5-10.8)
[2018-07-10 19:44] LABS: ALT 46 U/L (7-52); AST 81 U/L (13-39); Albumin 3.4 g/dL (3.2-5.2); Albumin/Globulin Ratio 1.1 (1-3); Alkaline Phosphatase 112 U/L (34-104); Anion Gap 5 mmol/L (2-11); BUN/Creatinine Ratio 20.2 (8-20); Blood Urea Nitrogen 24 mg/dL (6-24); C Reactive Protein 38.97 mg/L (<8.01); CO2 Carbon Dioxide 29 mmol/L (22-32); Calcium 9.9 mg/dL (8.6-10.3); Chloride 98 mmol/L (101-111); EGFR African American 52.7 (>60); EGFR Non-African American 43.5 (>60); Globulin 3.2 g/dL (2-4); Glucose 93 mg/dL (70-100); Magnesium 1.5 mg/dL (1.9-2.7); Potassium 4.3 mmol/L (3.5-5.0); Sodium 132 mmol/L (135-145); Total Protein 6.6 g/dL (6.4-8.9)
[2018-07-10 20:00] LABS: Platelet Count 28 10^3/uL (150-450); Troponin I 0.05 ng/mL (<0.04)
[2018-07-10 20:34] LABS: TSH (Thyroid Stimulating Horm) 1.68 mcIU/mL (0.34-5.60)
[2018-07-10] MEDS ORDERED: Iodixanol* (CONTRAST) 320 MG/ML 100 ML SDV IV ONE (21:04)
[2018-07-10] MEDS ORDERED: Acetaminophen TAB* 325 MG PO ONE (21:13)
[2018-07-10] MEDS ORDERED: Magnesium Sulfate 2 GM IV* 2 GM/50 ML BAG IVPB ONE (22:20)
[2018-07-10] MEDS ORDERED: NS 0.9% 1000 ML** 1,000 ML IV SCH (22:45)
[2018-07-10] MEDS ORDERED: Magnesium Hydroxide LIQ* 30 ML UDC PO PRN (22:46)
[2018-07-11 00:01] LABS: Influenza A Molecular NEGATIVE (Negative); Influenza B Molecular NEGATIVE (Negative)
[2018-07-11 00:37] LABS: Troponin I 0.06 ng/mL (<0.04)
[2018-07-11] MEDS: Cefepime 1 GM in Dextrose(*) 1 GM/50 ML BAG IV SCH ×3 (01:09→22:08)
--- NOTE | 2018-07-11 01:37 | HP ---
CC: Dr. Sandoval; Dr. Powell; HISTORY AND PHYSICAL: DATE OF ADMISSION: 07/10/18 PRIMARY CARE PROVIDER: Dr. Sandoval. ONCOLOGIST: Dr. Powell. CHIEF COMPLAINT: Feeling weak and fever. HISTORY OF PRESENT ILLNESS: Leandra Mcdaniel is an 83-year-old female with history of hepatic bowel duct carcinoma diagnosed in the year [id number], who has been on chemotherapy with cisplatin and Gemzar and the last dose of her chemotherapy was 06/30/18, who presented today complaining of weakness and fever. The patient stated that she has been over the weekend in [place]. She went for her grandson's graduation to [employer]. On her way back, she felt weak and she had 3 episodes of very loose bowel movements, but no significant abdominal pain. She also intermittently had gotten nauseated and her p.o. intake had been low. Today, she woke up after sleeping at least 12 hours and she felt still very weak. She came into the ED for evaluation with a temperature of 102 degrees. The patient has several chronic complaints and those include chronic dry cough for approximately a year. Increase in abdominal circumference for approximately a year. The patient also complains of intermittent abdominal pain in the liver area that happens intermittently especially when she bends down. This has not been worse. She has chronic bout of lower extremity edema, for which she takes Lasix. Apart from 3 loose bowel movements yesterday, she did not notice anything out of ordinary apart from generalized weakness. The patient is going to be admitted with a diagnosis of fever for overnight observation. PAST MEDICAL HISTORY: 1. History of intrahepatic biliary duct carcinoma, on chemotherapy with cisplatin and Gemzar. 2. disease. 3. History of hypothyroidism. 4. Knee surgery in 2013. 5. History of gastric ulcer in 1990. 6. Hepatitis A, diagnosed in 1955. The patient's echocardiogram on 06/22/18 showed EF of 60% to 65% with no significant valvular abnormalities. Last abdominal CT noted in May 2018 showed unchanged liver mass with unchanged small pulmonary nodules. Gallbladder was noted to have stones. MEDICATIONS: At home include: 1. Mag citrate 30 mL 3 times a day. 2. Lasix 40 mg daily. 3. Aldactone 25 mg daily. 4. Oxybutynin 5 mg b.i.d. 5. Fosamax 70 mg weekly. 6. Synthroid 112 mcg daily. 7. Milk of magnesia on a p.r.n. basis. 8. Mirtazapine 30 mg at night. 9. Nizatidine 300 mg twice a day. 10. Klor-Con 20 mEq daily. 11. Furosemide 40 mg daily. ALLERGIES: LATEX, PERFUME, and multiple ENVIRONMENTAL ALLERGIES. FAMILY HISTORY: Positive for both parents dying of "old age." Brother with history of hypertension. SOCIAL HISTORY: The patient is independent, lives with her boyfriend, Candace. Her surrogate is her daughter, Sonya Mcdaniel, her phone number is [phone]. REVIEW OF SYSTEMS: Please see the history of present illness. All the remaining 12 systems were reviewed with the patient and were otherwise negative. PHYSICAL EXAMINATION GENERAL: The patient is a pleasant 83-year-old female who is in no acute distress. Alert, awake, oriented x3. VITAL SIGNS: Blood pressure of 99/58, heart rate of 92 and regular, respiratory rate 23, oxygen saturation 96% on room air, temperature of 102.7. HEENT: Head: Atraumatic, normocephalic. Eyes: Pupils are equal and reactive to light and accommodation. Oropharynx is clear. Mucosa moist. NECK: Supple. No JVD. No bruit bilaterally. RESPIRATORY: Crackles at bilateral bases, otherwise clear. CARDIOVASCULAR: Regular rate and rhythm. No murmur. ABDOMEN: Mildly protuberant, soft, nontender. Bowel sounds are present in all 4 quadrants. EXTREMITIES: There is +1 pitting ankle edema bilaterally. Pulses are +2 bilaterally. No clubbing or cyanosis. NEUROLOGIC: On neuro evaluation, speech clear. Cranial nerves II through XII are grossly intact. Motor strength is 5/5 bilaterally. SKIN: On evaluation of skin, no rashes noted. PSYCHIATRY EVALUATION: Oriented x3. No evidence of anxiety or depression. DIAGNOSTIC STUDIES/LAB DATA: White blood cell of 3.7, hemoglobin of 9.4, hematocrit of 28, MCV of 110, and platelets of 28. Sodium of 132, potassium 4.2, chloride 98, carbon dioxide 24, BUN 24, creatinine 1.19. Liver function tests showed AST of 81, ALT of 46, alkaline phosphatase 112. The patient's troponin was noted to be 0.05. C-reactive protein of 38.9. Lactic acid of 1.1. TSH of 1.68. Urinalysis trace blood, otherwise unremarkable. The patient's EKG showed ventricular bigemini, otherwise sinus tachy with a heart rate of [address] angiogram of the chest obtained in the emergency department showed no pulmonary emboli. Hepatic cirrhosis and portal hypertension with findings of prior hepatocellular carcinoma treatment. Right lower lobe pulmonary nodule showing greater than 2 year stability, therefore, likely scarring, no follow up indicated, cholelithiasis. ASSESSMENT AND PLAN: 1. The patient has fever and meets systemic inflammatory response criteria. There is no source of infection so far identified. She has history of tic bites in the past, but denies any recent ones. Nevertheless, Lyme titer is going to be obtained. Blood cultures were also obtained. At this point, the patient has history of recent chemotherapy and the patient with history of being immunocompromised, the patient is going to be placed on cefepime. 2. The patient's troponin is mildly elevated likely due to demand ischemia in patient with fever. We will continue with telemetry and follow up troponins. The patient's echocardiogram earlier on this month was unremarkable. I do not believe the patient needs another echo. She is asymptomatic from cardiac standpoint. We will continue baby aspirin on a daily basis. 3. The patient has severe thrombocytopenia, which is likely side effect of her chemotherapy. I will briefly discuss it with the patient's oncologist in regards to further recommendations. For the time being, she is not going to be placed on anticoagulation for DVT prophylaxis and SCDs are going to be instituted. 4. The patient's code status is full. Her surrogate is her daughter. 5. The patient has chronic bilateral lower extremity edema, for which she takes Lasix and Aldactone. We will institute gentle intravenous hydration due to her fever today and slightly increased creatinine, but otherwise I will continue her diuretics tomorrow and place her on daily weight schedule to monitor it closely. 6. The patient's hypothyroidism appears to be well controlled with normal TSH and levothyroxine is going to be continued with the same dose as at home. TIME SPENT: Approximately 62 minutes was spent on admission of this patient, more than half that time was spent [id number] with the patient during the interview and physical exam. [id number]/[facility] #: [id number] [facility]
[2018-07-11] MEDS ORDERED: Spironolactone TAB* 25 MG PO ONE (02:22)
[2018-07-11] MEDS: Mirtazapine TAB* 15 MG PO SCH ×2 (02:42→22:09)
[2018-07-11] MEDS: Levothyroxine TAB* 112 MCG TAB PO SCH (05:50)
[2018-07-11] MEDS ORDERED: Heparin VIAL(*) 5000 UNITS/ML VIAL (FIVE THOUSAND) SUBCUT SCH (06:00)
[2018-07-11 06:18] LABS: BUN/Creatinine Ratio 20.5 (8-20); Calcium 9.4 mg/dL (8.6-10.3); EGFR African American 53.7 (>60); EGFR Non-African American 44.4 (>60); Potassium 3.7 mmol/L (3.5-5.0)
[2018-07-11 06:24] LABS: Troponin I 0.04 ng/mL (<0.04)
[2018-07-11 06:33] LABS: ABS Eosinophils 0.1 10^3/ul (0-0.6); ABS Lymphocytes 0.7 10^3/ul (1.0-4.8); ABS Monocytes 0.4 10^3/ul (0-0.8); ABS Neutrophils 1.8 10^3/ul (1.5-7.7); Eosinophil % 1.8 %; Hematocrit 35 % (35-47); Hemoglobin 11.7 g/dL (12.0-16.0); Lymphocyte % 23.8 %; Mean Corpuscular HGB Conc 33 g/dL (31-36); Mean Corpuscular Hemoglobin 37 pg (27-31); Mean Corpuscular Volume 111 fL (80-97); Nucleated Red Blood Cells % 0.5; Platelet Count 22 10^3/uL (150-450); Red Blood Count 3.15 10^6 /uL (3.70-4.87); Red Cell Distribution Width 20 % (10.5-15)
[2018-07-11] MEDS ORDERED: Spironolactone TAB* 25 MG PO SCH (09:00)
[2018-07-11] MEDS: Magnesium CITRATE* 300 ML BTL PO SCH ×3 (09:09→22:09)
[2018-07-11] MEDS: Oxybutynin TAB* 5 MG PO SCH ×2 (09:09→22:09)
[2018-07-11] MEDS: Aspirin 81 mg CHEW TAB* 81 MG TAB.CHEW PO SCH (09:09)
[2018-07-11] MEDS: Potassium Chlor TAB* 20 MEQ TAB.ER PO SCH (09:09)
[2018-07-11] MEDS: Acetaminophen TAB* 325 MG PO PRN (09:14)
[2018-07-11] MEDS ORDERED: NS 0.9% 1000 ML** 1,000 ML IV SCH (10:30)
--- NOTE | 2018-07-11 10:40 | PN ---
Progress Note - Progress Note Date of Service: 07/11/18 SOAP: Subjective: [Feels very weak this am. Appetite is poor. She returned from a trip to [place] 2d ago to watch her grandson graduate. She had some intermittent mild diarrhea while she was traveling and limited her fluid intake hoping it would reduce her output while she was at family functions. After returning home on Wednesday she fell asleep at ~3p and slept through till mid morning the following day. She remained fatigued and then developed a fever yesterday. Reports her diarrhea was more severe yesterday. No abd pain or nausea. Appetite has been poor. No sick contacts] Objective: [ Laboratory Results - last 24 hr 07/10/18 07/10/18 07/10/18 18:58 19:18 19:18 WBC 3.7 RBC 2.56 L Hgb 9.4 L Hct 28 L MCV 110 H MCH 37 H MCHC 34 RDW 19 H Plt Count 28 L MPV 9.1 Neut % (Auto) 66.4 Lymph % (Auto) 19.6 [place] % (Auto) 12.7 Eos % (Auto) 0.7 Baso % (Auto) 0.6 Absolute Neuts (auto) 2.4 Absolute Lymphs (auto) 0.7 L Absolute Monos (auto) 0.5 Absolute Eos (auto) 0.0 Absolute Basos (auto) 0.0 Absolute Nucleated RBC 0.0 Nucleated RBC % 0.1 Sodium 132 L Potassium 4.3 Chloride 98 L Carbon Dioxide 29 Anion Gap 5 BUN 24 Creatinine 1.19 H Est GFR ( Amer) 52.7 Est GFR (Non-Af Amer) 43.5 BUN/Creatinine Ratio 20.2 H Glucose 93 Lactic Acid Calcium 9.9 Magnesium 1.5 L Total Bilirubin 1.00 AST 81 H ALT 46 Alkaline Phosphatase 112 H Troponin I 0.05 H* C-Reactive Protein 38.97 H Total Protein 6.6 Albumin 3.4 Globulin 3.2 Albumin/Globulin Ratio 1.1 TSH 1.68 Urine Color Mariah Urine Appearance Cloudy Urine pH 5.0 Ur Specific Mck[place] 1.010 Urine Protein Negative Urine Ketones Negative Urine Blood 1+ A Urine Nitrate Negative Urine Bilirubin Negative Urine Urobilinogen Negative Ur Leukocyte Esterase Negative Urine WBC (Auto) Trace(0-5/hpf) Urine RBC (Auto) 2+(6-10/hpf) A Ur Squamous Epith Cells Present A Urine Bacteria Absent Urine Glucose Negative Urine Ascorbic Acid * A Influenza A (Rapid) Influenza B (Rapid) 07/10/18 07/10/18 07/11/18 19:18 23:34 00:01 WBC RBC Hgb Hct MCV MCH MCHC RDW Plt Count MPV Neut % (Auto) Lymph % (Auto) [place] % (Auto) Eos % (Auto) Baso % (Auto) Absolute Neuts (auto) Absolute Lymphs (auto) Absolute Monos (auto) Absolute Eos (auto) Absolute Basos (auto) Absolute Nucleated RBC Nucleated RBC % Sodium Potassium Chloride Carbon Dioxide Anion Gap BUN Creatinine Est GFR ( Amer) Est GFR (Non-Af Amer) BUN/Creatinine Ratio Glucose Lactic Acid 1.1 Calcium Magnesium Total Bilirubin AST ALT Alkaline Phosphatase Troponin I 0.06 H* C-Reactive Protein Total Protein Albumin Globulin Albumin/Globulin Ratio TSH Urine Color Urine Appearance Urine pH Ur Specific [place] Urine Protein Urine Ketones Urine Blood Urine Nitrate Urine Bilirubin Urine Urobilinogen Ur Leukocyte Esterase Urine WBC (Auto) Urine RBC (Auto) Ur Squamous Epith Cells Urine Bacteria Urine Glucose Urine Ascorbic Acid Influenza A (Rapid) Negative Influenza B (Rapid) Negative 07/11/18 07/11/18 05:34 05:34 WBC 3.0 L RBC 3.15 L Hgb 11.7 L Hct 35 MCV 111 H MCH 37 H MCHC 33 RDW 20 H Plt Count 22 L MPV 10.0 Neut % (Auto) 61.1 Lymph % (Auto) 23.8 [place] % (Auto) 12.3 Eos % (Auto) 1.8 Baso % (Auto) 1.0 Absolute Neuts (auto) 1.8 Absolute Lymphs (auto) 0.7 L Absolute Monos (auto) 0.4 Absolute Eos (auto) 0.1 Absolute Basos (auto) 0.0 Absolute Nucleated RBC 0.0 Nucleated RBC % 0.5 Sodium 132 L Potassium 3.7 Chloride 98 L Carbon Dioxide 25 Anion Gap 9 BUN 24 Creatinine 1.17 H Est GFR ( Amer) 53.7 Est GFR (Non-Af Amer) 44.4 BUN/Creatinine Ratio 20.5 H Glucose 116 H Lactic Acid Calcium 9.4 Magnesium Total Bilirubin AST ALT Alkaline Phosphatase Troponin I 0.04 H* C-Reactive Protein Total Protein Albumin Globulin Albumin/Globulin Ratio TSH Urine Color Urine Appearance Urine pH Ur Specific [place] Urine Protein Urine Ketones Urine Blood Urine Nitrate Urine Bilirubin Urine Urobilinogen Ur Leukocyte Esterase Urine WBC (Auto) Urine RBC (Auto) Ur Squamous Epith Cells Urine Bacteria Urine Glucose Urine Ascorbic Acid Influenza A (Rapid) Influenza B (Rapid) Acetaminophen (Tylenol Tab*) 650 mg PO Q4H PRN PRN Reason: FEVER/PAIN Last Admin: 07/11/18 09:14 Dose: 650 mg Aspirin (Aspirin 81 Mg Chew Tab*) 81 mg PO DAILY [facility] Last Admin: 07/11/18 09:09 Dose: 81 mg Furosemide (Lasix Tab*) 40 mg PO DAILY [facility] Cefepime HCl (Maxipime 1 Gm In Dextrose Duplex (*)) 1 gm in 50 mls @ 100 mls/ hr IV Q12H [facility] Last Admin: 07/11/18 01:09 Dose: 100 mls/hr Magnesium Sulfate (Magnesium Sulf 4 Gm/100 Ml Iv*) 4,000 mg in 100 mls @ 33.333 mls/hr IVPB ONCE ONE Stop: 07/11/18 13:23 Sodium Chloride (Ns 0.9% 1000 Ml) 1,000 mls @ 75 mls/hr IV PER RATE [facility] Levothyroxine Sodium (Synthroid Tab*) 112 mcg PO 0600 [facility] Last Admin: 07/11/18 05:50 Dose: 112 mcg Magnesium Citrate (Citrate Of Magnesia*) 30 ml PO TID [facility] Last Admin: 07/11/18 09:09 Dose: 30 ml Magnesium Hydroxide (Milk Of Magnesia Liq*) 30 ml PO BID PRN PRN Reason: HEARTBURN Mirtazapine (Remeron Tab*) 30 mg PO BEDTIME [facility] Last Admin: 07/11/18 02:42 Dose: 30 mg Oxybutynin Chloride (Ditropan Tab*) 5 mg PO BID [facility] Last Admin: 07/11/18 09:09 Dose: 5 mg Potassium Chloride (Klor Con Er Tab*) 20 meq PO DAILY [facility] Last Admin: 07/11/18 09:09 Dose: 20 meq Spironolactone (Aldactone Tab*) 25 mg PO BEDTIME [facility] Vital Signs: Temp Pulse Resp BP Pulse Ox 100 F 93 18 93/46 93 07/11/18 08:36 07/11/18 08:36 07/11/18 08:36 07/11/18 08:45 07/11/18 08:36 Exam: Gen: Very lethargic appearing HEENT: mildly dry MM CV: RRR, no m/r/g Resp: CTA Abd: distended, but soft with active BS Ext: 1-2+ LE edema Skin: no rashes] Assessment: [83 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 Source of infection is not clear, but likely represents a viral gastroenteritis.] Plan: [1. Febrile illness - likely viral gastroenteritis, abd exam is benign - cultures are pending - cont empiric Cefepime until cultures return, if negative will stop - cont supportive measures with IVF and electrolyte repletion 2. Hypomagnesemia - cont to replete aggressively 3. Thrombocytopenia - no bleeding - likely chemotherapy effect, but more dramatic than usual at this point in her cycle- may be related to viral illness? - cont to monitor 4. Hepatobiliary CA - palliative cisplatin/gemcitabine, last cycle starting 06/30/18 FULL CODE hold DVT prophylaxis d/t thrombocytopenia ]
[2018-07-11] MEDS ORDERED: Magnesium Sulf 4 GM/100 ML IV* 4,000 MG/100 ML BAG IVPB ONE (12:00)
[2018-07-11] MEDS: Furosemide TAB* 40 MG PO SCH (12:06)
[2018-07-11] MEDS: Famotidine TAB* 20 MG PO SCH (12:45)
[2018-07-11] MEDS: Spironolactone TAB* 25 MG PO SCH (21:39)
[2018-07-12] MEDS: Acetaminophen TAB* 325 MG PO PRN (00:31)
[2018-07-12] MEDS: Levothyroxine TAB* 112 MCG TAB PO SCH (05:58)
[2018-07-12] MEDS: Magnesium CITRATE* 300 ML BTL PO SCH ×3 (08:57→21:21)
[2018-07-12] MEDS: Aspirin 81 mg CHEW TAB* 81 MG TAB.CHEW PO SCH (08:58)
[2018-07-12] MEDS: Oxybutynin TAB* 5 MG PO SCH ×2 (08:58→21:20)
[2018-07-12] MEDS: Furosemide TAB* 40 MG PO SCH (08:58)
[2018-07-12] MEDS: Famotidine TAB* 20 MG PO SCH (08:58)
[2018-07-12] MEDS: Potassium Chlor TAB* 20 MEQ TAB.ER PO SCH (08:58)
[2018-07-12 10:55] LABS: ABS Eosinophils 0.1 10^3/ul (0-0.6); ABS Lymphocytes 1.2 10^3/ul (1.0-4.8); ABS Monocytes 0.5 10^3/ul (0-0.8); ABS Neutrophils 1.6 10^3/ul (1.5-7.7); Eosinophil % 2.9 %; Hematocrit 24 % (35-47); Hemoglobin 8.1 g/dL (12.0-16.0); Mean Corpuscular HGB Conc 34 g/dL (31-36); Mean Corpuscular Hemoglobin 37 pg (27-31); Mean Corpuscular Volume 110 fL (80-97); Mean Platelet Volume 10.7 fL (7.4-10.4); Nucleated Red Blood Cells % 0.1; Platelet Count 22 10^3/uL (150-450); Red Blood Count 2.18 10^6 /uL (3.70-4.87); Red Cell Distribution Width 20 % (10.5-15); White Blood Count 3.5 10^3/uL (3.5-10.8)
[2018-07-12] MEDS: Cefepime 1 GM in Dextrose(*) 1 GM/50 ML BAG IV SCH ×2 (10:57→23:42)
[2018-07-12 11:16] LABS: Albumin 2.9 g/dL (3.2-5.2); Albumin/Globulin Ratio 1.1 (1-3); BUN/Creatinine Ratio 21.5 (8-20); EGFR Non-African American 57.9 (>60); Globulin 2.7 g/dL (2-4); Potassium 3.6 mmol/L (3.5-5.0); Total Bilirubin 0.8 mg/dL (0.2-1.0); Total Protein 5.6 g/dL (6.4-8.9)
[2018-07-12] MEDS: Mirtazapine TAB* 15 MG PO SCH (21:20)
[2018-07-12] MEDS: Spironolactone TAB* 25 MG PO SCH (21:35)
[2018-07-13 06:09] LABS: ABS Eosinophils 0.1 10^3/ul (0-0.6); ABS Lymphocytes 2.2 10^3/ul (1.0-4.8); ABS Monocytes 0.6 10^3/ul (0-0.8); ABS Neutrophils 1.5 10^3/ul (1.5-7.7); Eosinophil % 2.5 %; Hematocrit 24 % (35-47); Lymphocyte % 49.2 %; Mean Corpuscular HGB Conc 34 g/dL (31-36); Mean Corpuscular Hemoglobin 37 pg (27-31); Mean Corpuscular Volume 109 fL (80-97); Mean Platelet Volume 11.6 fL (7.4-10.4); Nucleated Red Blood Cells % 0.1; Platelet Count 29 10^3/uL (150-450); Red Blood Count 2.15 10^6 /uL (3.70-4.87); Red Cell Distribution Width 20 % (10.5-15); White Blood Count 4.5 10^3/uL (3.5-10.8)
[2018-07-13] MEDS: Levothyroxine TAB* 112 MCG TAB PO SCH (06:28)
[2018-07-13 07:44] VITALS: BP 107/51
[2018-07-13] MEDS: Magnesium CITRATE* 300 ML BTL PO SCH (07:55)
[2018-07-13] MEDS: Potassium Chlor TAB* 20 MEQ TAB.ER PO SCH (07:56)
[2018-07-13] MEDS: Oxybutynin TAB* 5 MG PO SCH (07:57)
[2018-07-13] MEDS: Furosemide TAB* 40 MG PO SCH (07:57)
[2018-07-13] MEDS: Famotidine TAB* 20 MG PO SCH (07:57)
[2018-07-13] MEDS: Aspirin 81 mg CHEW TAB* 81 MG TAB.CHEW PO SCH (07:57)
[2018-07-13] MEDS: Cefepime 1 GM in Dextrose(*) 1 GM/50 ML BAG IV SCH (11:32)
== END 2018-07-13 11:40 | disposition home or self-care (01) | DRG 392 ==
LOC: ED 18:10 → MEDTELE 22:42 → OBSVTOIN 07-11 10:42
PROVIDERS: ADMIT Internal Medicine; ATTEND Internal Medicine Hematology & Oncology
DX: K52.9 Noninfective gastroenteritis and colitis, unspecified (principal); K76.6 Portal hypertension; C78.7 Secondary malignant neoplasm of liver and intrahepatic bile duct; R35.0 Frequency of micturition; K21.9 Gastro-esophageal reflux disease without esophagitis; M19.90 Unspecified osteoarthritis, unspecified site; D01.5 Carcinoma in situ of liver, gallbladder and bile ducts; F41.9 Anxiety disorder, unspecified; R00.0 Tachycardia, unspecified; R00.8 Other abnormalities of heart beat; E03.9 Hypothyroidism, unspecified; R60.0 Localized edema; K74.60 Unspecified cirrhosis of liver; K80.20 Calculus of gallbladder without cholecystitis without obstruction; R79.89 Other specified abnormal findings of blood chemistry; D69.6 Thrombocytopenia, unspecified; E83.42 Hypomagnesemia; R32 Unspecified urinary incontinence; Z91.040 Latex allergy status; Z91.011 Allergy to milk products; Z88.2 Allergy status to sulfonamides; Z88.8 Allergy status to other drugs, medicaments and biological substances; Z91.018 Allergy to other foods; Z91.048 Other nonmedicinal substance allergy status; Z87.11 Personal history of peptic ulcer disease; Z92.21 Personal history of antineoplastic chemotherapy; Z98.42 Cataract extraction status, left eye; Z98.41 Cataract extraction status, right eye; Z87.891 Personal history of nicotine dependence; Z86.19 Personal history of other infectious and parasitic diseases; Z82.49 Family history of ischemic heart disease and other diseases of the circulatory system
CPT/HCPCS: 36415; 71045; 71275; 80048; 80053; 81003; 81015; 83605; 83735; 84443; 84484; 85025; 85060; 86140; 86618; 87040; 87086; 93005; 99232; 99284; A9270-GY; G0378; G8978-GP-CI; G8979-GP-CI; G8980-GP-CI; J0692; J1642; J3475; Q9967

== ENCOUNTER 2018-12-13 22:57 | Emergency (ER) | payer MEDICARE, BC ==
--- OUTSIDE RECORDS SUMMARY | 2018-12-13 23:39 | XMS REPORT | Continuity of Care Document ---
:1935 External Reference #:[id number] Author Name Lucio Sandoval M.D. Address [address] [facility] [address] [place] [address] Care Team Providers Name Role Phone HCP given Care Team Information Log Raft Worker Unavailable [facility] Dept of Nutrition & Dietary Care Team Information Log Raft Worker Services - Dietitian, Cj Cohen MD - Pediatric Care Team Information Log Raft Worker [phone] Dermatology Gisela Hendricks DPM - Bearing Inspector Care Team Information Log Raft Worker Dick Powell MD - Internal Care Team Information Log Raft Worker [phone] [facility] - Sleep Disorder Care Team Information Log Raft Worker [phone] Diagnostic Problems Active Problems Provider Date Hypothyroidism Kapil Longoria M.D. Onset: 12/26/2015 Primary malignant neoplasm of liver Lucio Sandoval M.D. Onset: 02/03/2016 Generalized anxiety disorder Lucio Sandoval M.D. Onset: 02/03/2016 Social History Type Date Description Comments Sex Unknown Tobacco Use Reviewed: 03/31/17 Denies Cigarette Use smoked socially in her late teens-early 20s Smoking Status Reviewed: 03/31/17 Denies Cigarette Use smoked socially in her late teens-early 20s Tobacco Use Start: Unknown Non Smoker Exercise Exercises sporadically Type/Frequency Sun Exposure Uses sunscreen Seat Belt/Car Seat Seat Belt Use - Yes Allergies, Adverse Reactions, Alerts Active Allergies Reaction Severity Comments Date Latex skin rash/raw 12/25/2015 Sulfa including eye drops/rash in 1955 12/25/2015 Butazolidin no longer manufactured 12/25/2015 Medications Active Medications SIG Qnty Indications Ordering Date Provider Buspirone HCL 1 by mouth twice a 90tabs F41.1 Silcoff, 11/14/2018 5mg day for anxiety; Samia Valdes Tablets increase to 1.5 pills 2x/day (or 1 pill 3x/day) after 2wks Oxybutynin Chloride take one tablet by 90tabs N32.81 Silcoff, 11/14/2018 5mg mouth 3x/day for Samia Valdes Tablets reducing urgency and associated incontinence Tramadol HCL 1 tablet by mouth 90tabs M25.552 Silcoff, 11/14/2018 50mg every 4 hours as Samia Valdes Tablets needed for severe pain Vitamin D 4 tabs by mouth Unknown 11/13/2018 1000Unit every day Tablets Furosemide take 2 tablets in Unknown 10/25/2018 20mg Tablets am and 1 tab in evening Potassium Chloride ER TK 2 TS PO Daily Unknown 10/21/2018 20Meq Tablets ER Spironolactone take 1 tablet by Unknown 07/15/2018 25mg mouth twice daily Tablets Magnesium Citrate 30 ml three times Unknown 05/09/2018 daily (for 1.745GM/30ML Solution magnesium supplementation) Super B Complex Maxi 1 tab po evenings Unknown 07/29/2017 Tablets Glucosamine/Chondroit 1 po bid Unknown 07/29/2017 in Double Strength 500-400mg Capsules Vitamin C one po daily Unknown 09/13/2016 500mg Capsules Nizatidine 1 by mouth twice a 180caps Silcoff, 07/30/2016 300mg day for acid reflux Samia Valdes Capsules Vitamin B12 take 1 once a day Unknown 03/15/2016 in am Mirtazapine 1 by mouth every 90tabs F41.1 Silcoff, 02/03/2016 30mg night at bedtime; Samia Valdes Tablets for anxiety Fexofenadine HCL one tablet by mouth Unknown 12/24/2015 180mg once daily for Tablets allergies Aspirin Low Dose 1 by mouth every Unknown 12/24/2015 81mg day for blood Tablets 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 30Billion Cfu/15 Strain Arctic Cod Liver Oil 1 capsule by mouth Unknown 12/24/2015 twice daily 675mg [place] 3 W/Epa, DH Proair HFA 2 puffs up to every 8.500gm Silcoff, 12/24/2015 108(90Base) 4 hours as needed; Samia Valdes mcg/Act Aerosol for cough, wheezing, sob Synthroid Take 1 Tablet By 90tabs E03.9 Silcoff, 09/18/2015 112mcg Mouth Every Morning Samia Valdes Tablets On An Empty Stomach For Low Thryroid Azelastine HCL use 1-2 sprays in 30ml Silcoff, 07/30/2015 (Nasal) both nostril up to Samia Valdes 0.1% Solution 2x/day as needed (prior to entering places with perfumes or smoke) Epipen 2-Oscar as directed for 2units Silcoff, 03/13/2015 anaphylaxis Samia Valdes 0.3mg/0.3ML Solution (reaction to Auto-Inject allergy injections) History Medications Oxybutynin Chloride take one tablet N32.81 Lucio Sandoval, 11/10/2018 - by mouth twice M.D. 11/14/2018 5mg Tablets daily Cephalexin 1 by mouth 3x a 30tabs L03.031 Lucio Sandoval, 08/12/2018 - 500mg day x10 days; for M.D. 08/22/2018 Tablets skin infection Potassium Chloride TaKe 1 Tablet by Unknown 08/02/2018 - Melly ER mouth daily 11/13/2018 20Meq Tablets ER Immunizations CPT Code Status Date Vaccine Lot # [id number] Given 11/14/2018 Influenza Vaccine, Inactivated, Subunit, [id number] Adjuvanted, For Intrmusc U-Flu Given 12/09/2017 Influenza,Unspecified [id number] Given 12/12/2015 Influenza Vaccine Split Virus Preservative Free Im Use [id number] Given 02/16/2011 Adacel or Boostrix, TDaP [id number] Given 04/14/2010 Zostavax Vital Signs Date Vital Result Comment 11/14/2018 11:26am BP Systolic 118 mmHg BP Diastolic 60 mmHg Weight 145.00 lb with sneakers 08/12/2018 3:31pm BP Systolic 124 mmHg BP Diastolic 60 mmHg Body Temperature 97.9 F Weight 151.00 lb w/sneakers Results Test Date Facility Test Result H/L Range Note Basic Metabolic Panel 10/26/2018 [facility] Sodium 132 mmol/L Low 135 -145 [phone] Potassium 3.9 mmol/L Normal 3.5-5.0 Chloride 98 mmol/L Low 101-111 Co2 Carbon Dioxide 28 mmol/L Normal 22-32 Anion Gap 6 mmol/L Normal 2-11 Glucose 92 mg/dL Normal 70-100 Blood Urea Nitrogen 25 mg/dL High 6-24 Creatinine 1.04 mg/dL High 0.51-0.95 BUN/Creatinine Ratio 24.0 High 8-20 Calcium 9.7 mg/dL Normal 8.6-10.3 Egfr Non- 50.9 >60 Egfr 61.5 >60 1 Laboratory test 10/26/2018 [facility] Magnesium 1.5 mg/dL Low 1.9- 2.7 finding [phone] CBC Auto Diff 10/26/2018 [facility] White Blood 5.9 Normal 3.5-10.8 [phone] Count 10^3/uL Red Blood Count 2.78 10^6/uL Low 3.70-4.87 Hemoglobin 10.2 g/dL Low 12.0-16.0 Hematocrit 30 % Low 35-47 Mean Corpuscular Volume 107 fL High 80-97 Mean Corpuscular Hemoglobin 37 pg High 27-31 Mean Corpuscular HGB Conc 34 g/dL Normal 31-36 Red Cell Distribution Width 25 % High 10-15 2 Platelet Count 107 10^3/uL Low 150-450 Mean Platelet Volume 8.7 fL Normal 7.4-10.4 Abs Neutrophils 3.8 10^3/uL Normal 1.5-7.7 Abs Lymphocytes 0.9 10^3/uL Low 1.0-4.8 Abs Monocytes 1.0 10^3/uL High 0-0.8 Abs Eosinophils 0.0 10^3/uL Normal 0-0.6 Abs Basophils 0.1 10^3/uL Normal 0-0.2 Abs Nucleated RBC 0.0 10^3/uL Granulocyte % 64.5 % Lymphocyte % 15.9 % Monocyte % 17.5 % Eosinophil % 0.6 % Basophil % 1.5 % Nucleated Red Blood Cells % 0.0 Comp Metabolic Panel 10/20/2018 [facility] Sodium 132 mmol/L Low 135- 145 [phone] Potassium 3.1 mmol/L Low 3.5-5.0 Chloride 98 mmol/L Low 101-111 Co2 Carbon Dioxide 30 mmol/L Normal 22-32 Anion Gap 4 mmol/L Normal 2-11 Glucose 137 mg/dL High 70-100 Blood Urea Nitrogen 23 mg/dL Normal 6-24 Creatinine 0.90 mg/dL Normal 0.51-0.95 BUN/Creatinine Ratio 25.6 High 8-20 Calcium 9.4 mg/dL Normal 8.6-10.3 Total Protein 5.7 g/dL Low 6.4-8.9 Albumin 3.1 g/dL Low 3.2-5.2 Globulin 2.6 g/dL Normal 2-4 Albumin/Globulin Ratio 1.2 Normal 1-3 Total Bilirubin 1.00 mg/dL Normal 0.2-1.0 Alkaline Phosphatase 133 U/L High 34-104 Alt 43 U/L Normal 7-52 Ast 49 U/L High 13-39 Egfr Non- 60.1 >60 Egfr 72.7 >60 3 Laboratory test 10/20/2018 [facility] Magnesium 1.4 mg/dL Low 1.9- 2.7 finding [phone] CBC Auto Diff 10/20/2018 [facility] White Blood 5.3 Normal 3.5-10.8 [phone] Count 10^3/uL Red Blood Count 2.66 10^6/uL Low 3.70-4.87 Hemoglobin 9.4 g/dL Low 12.0-16.0 Hematocrit 29 % Low 35-47 Mean Corpuscular Volume 107 fL High 80-97 Mean Corpuscular Hemoglobin 36 pg High 27-31 Mean Corpuscular HGB Conc 33 g/dL Normal 31-36 Red Cell Distribution Width 28 % High 10-15 Platelet Count 131 10^3/uL Low 150-450 Mean Platelet Volume 9.3 fL Normal 7.4-10.4 Abs Neutrophils 2.4 10^3/uL Normal 1.5-7.7 Abs Lymphocytes 1.4 10^3/uL Normal 1.0-4.8 Abs Monocytes 1.4 10^3/uL High 0-0.8 Abs Eosinophils 0.0 10^3/uL Normal 0-0.6 Abs Basophils 0.0 10^3/uL Normal 0-0.2 Abs Nucleated RBC 0.0 10^3/uL Granulocyte % 45.0 % Lymphocyte % 27.1 % Monocyte % 26.2 % Eosinophil % 0.8 % Basophil % 0.9 % Nucleated Red Blood Cells % 0.2 Comp Metabolic Panel 10/06/2018 [facility] Sodium 126 mmol/L Low 135- 145 [phone] Potassium 4.0 mmol/L Normal 3.5-5.0 Chloride 91 mmol/L Low 101-111 Co2 Carbon Dioxide 32 mmol/L Normal 22-32 Anion Gap 3 mmol/L Normal 2-11 Glucose 147 mg/dL High 70-100 Blood Urea Nitrogen 32 mg/dL High 6-24 Creatinine 1.06 mg/dL High 0.51-0.95 BUN/Creatinine Ratio 30.2 High 8-20 Calcium 9.9 mg/dL Normal 8.6-10.3 Total Protein 6.0 g/dL Low 6.4-8.9 Albumin 3.2 g/dL Normal 3.2-5.2 Globulin 2.8 g/dL Normal 2-4 Albumin/Globulin Ratio 1.1 Normal 1-3 Total Bilirubin 1.30 mg/dL High 0.2-1.0 Alkaline Phosphatase 146 U/L High 34-104 Alt 39 U/L Normal 7-52 Ast 56 U/L High 13-39 Egfr Non- 49.8 >60 Egfr 60.2 >60 4 Laboratory test 10/06/2018 [facility] Magnesium 1.7 mg/dL Low 1.9- 2.7 finding [phone] CBC Auto Diff 10/06/2018 [facility] White Blood 2.2 10^3/uL Low 3.5- 10.8 [phone] Count Red Blood Count 2.01 10^6/uL Low 3.70-4.87 Hemoglobin 7.0 g/dL Low 12.0-16.0 Hematocrit 20 % Low 35-47 Mean Corpuscular Volume 102 fL High 80-97 Mean Corpuscular Hemoglobin 35 pg High 27-31 Mean Corpuscular HGB Conc 34 g/dL Normal 31-36 Red Cell Distribution Width 23 % High 10-15 5 Platelet Count 15 10^3/uL Low 150-450 6 Mean Platelet Volume 8.7 fL Normal 7.4-10.4 Abs Neutrophils 1.3 10^3/uL Low 1.5-7.7 Abs Lymphocytes 0.8 10^3/uL Low 1.0-4.8 Abs Monocytes 0.1 10^3/uL Normal 0-0.8 Abs Eosinophils 0.0 10^3/uL Normal 0-0.6 Abs Basophils 0.0 10^3/uL Normal 0-0.2 Abs Nucleated RBC 0.0 10^3/uL Granulocyte % 58.3 % Lymphocyte % 36.5 % Monocyte % 3.3 % Eosinophil % 0.7 % Basophil % 1.2 % Nucleated Red Blood Cells % 0.0 Laboratory test 10/04/2018 [facility] Packed Cells SEE RESULTS BELO 7 finding [phone] <SEE NOTE> Type & Screen 10/04/2018 [facility] Patient Blood O Positive [phone] Type Antibody Screen NEGATIVE Laboratory test finding 10/04/2018 [facility] Magnesium 1.4 mg/dL Low 1.9-2.7 [phone] Comp Metabolic Panel 10/04/2018 [facility] Sodium 128 mmol/L Low 135- 145 [phone] Potassium 3.8 mmol/L Normal 3.5-5.0 Chloride 93 mmol/L Low 101-111 Co2 Carbon Dioxide 31 mmol/L Normal 22-32 Anion Gap 4 mmol/L Normal 2-11 Glucose 149 mg/dL High 70-100 Blood Urea Nitrogen 26 mg/dL High 6-24 Creatinine 1.02 mg/dL High 0.51-0.95 BUN/Creatinine Ratio 25.5 High 8-20 Calcium 10.2 mg/dL Normal 8.6-10.3 Total Protein 6.2 g/dL Low 6.4-8.9 Albumin 3.1 g/dL Low 3.2-5.2 Globulin 3.1 g/dL Normal 2-4 Albumin/Globulin Ratio 1.0 Normal 1-3 Total Bilirubin 2.20 mg/dL High 0.2-1.0 Alkaline Phosphatase 138 U/L High 34-104 Alt 43 U/L Normal 7-52 Ast 55 U/L High 13-39 Egfr Non- 52.0 >60 Egfr 62.9 >60 8 CBC Auto Diff 10/04/2018 [facility] White Blood 4.1 10^3/uL Normal 3.5-10.8 [phone] Count Red Blood Count 2.17 10^6/uL Low 3.70-4.87 Hemoglobin 7.8 g/dL Low 12.0-16.0 Hematocrit 22 % Low 35-47 Mean Corpuscular Volume 103 fL High 80-97 9 Mean Corpuscular Hemoglobin 36 pg High 27-31 Mean Corpuscular HGB Conc 35 g/dL Normal 31-36 Red Cell Distribution Width 24 % High 10-15 10 Platelet Count 31 10^3/uL Low 150-450 Mean Platelet Volume 8.3 fL Normal 7.4-10.4 Abs Neutrophils 3.1 10^3/uL Normal 1.5-7.7 Abs Lymphocytes 0.9 10^3/uL Low 1.0-4.8 Abs Monocytes 0.1 10^3/uL Normal 0-0.8 Abs Eosinophils 0.0 10^3/uL Normal 0-0.6 Abs Basophils 0.0 10^3/uL Normal 0-0.2 Abs Nucleated RBC 0.0 10^3/uL Granulocyte % 76.0 % Lymphocyte % 21.7 % Monocyte % 1.6 % Eosinophil % 0.1 % Basophil % 0.6 % Nucleated Red Blood Cells % 0.0 CBC Auto Diff 09/29/2018 [facility] White Blood 4.8 10^3/uL Normal 3.5-10.8 [phone] Count Red Blood Count 2.42 10^6/uL Low 3.70-4.87 Hemoglobin 8.6 g/dL Low 12.0-16.0 Hematocrit 25 % Low 35-47 Mean Corpuscular Volume 102 fL High 80-97 Mean Corpuscular Hemoglobin 35 pg High 27-31 Mean Corpuscular HGB Conc 35 g/dL Normal 31-36 Red Cell Distribution Width 24 % High 10-15 11 Platelet Count 111 10^3/uL Low 150-450 Mean Platelet Volume 8.3 fL Normal 7.4-10.4 Abs Neutrophils 3.2 10^3/uL Normal 1.5-7.7 Abs Lymphocytes 1.2 10^3/uL Normal 1.0-4.8 Abs Monocytes 0.4 10^3/uL Normal 0-0.8 Abs Eosinophils 0.0 10^3/uL Normal 0-0.6 Abs Basophils 0.1 10^3/uL Normal 0-0.2 Abs Nucleated RBC 0.0 10^3/uL Granulocyte % 65.2 % Lymphocyte % 24.8 % Monocyte % 8.5 % Eosinophil % 0.2 % Basophil % 1.3 % Nucleated Red Blood Cells % 0.1 Comp Metabolic Panel 09/29/2018 [facility] Sodium 133 mmol/L Low 135- 145 [phone] Potassium 3.7 mmol/L Normal 3.5-5.0 Chloride 97 mmol/L Low 101-111 Co2 Carbon Dioxide 31 mmol/L Normal 22-32 Anion Gap 5 mmol/L Normal 2-11 Glucose 115 mg/dL High 70-100 Blood Urea Nitrogen 30 mg/dL High 6-24 Creatinine 1.07 mg/dL High 0.51-0.95 BUN/Creatinine Ratio 28.0 High 8-20 Calcium 9.6 mg/dL Normal 8.6-10.3 Total Protein 6.4 g/dL Normal 6.4-8.9 Albumin 3.2 g/dL Normal 3.2-5.2 Globulin 3.2 g/dL Normal 2-4 Albumin/Globulin Ratio 1.0 Normal 1-3 Total Bilirubin 1.10 mg/dL High 0.2-1.0 Alkaline Phosphatase 162 U/L High 34-104 Alt 48 U/L Normal 7-52 Ast 65 U/L High 13-39 Egfr Non- 49.2 >60 Egfr 59.6 >60 12 Laboratory test finding 09/29/2018 [facility] Magnesium 1.3 mg/dL Low 1.9-2.7 [phone] Laboratory test finding 09/22/2018 [facility] Magnesium 1.5 mg/dL Low 1.9-2.7 [phone] Comp Metabolic Panel 09/22/2018 [facility] Sodium 132 mmol/L Low 135- 145 [phone] Potassium 3.4 mmol/L Low 3.5-5.0 Chloride 94 mmol/L Low 101-111 Co2 Carbon Dioxide 31 mmol/L Normal 22-32 Anion Gap 7 mmol/L Normal 2-11 Glucose 153 mg/dL High 70-100 Blood Urea Nitrogen 25 mg/dL High 6-24 Creatinine 1.16 mg/dL High 0.51-0.95 BUN/Creatinine Ratio 21.6 High 8-20 Calcium 10.4 mg/dL High 8.6-10.3 Total Protein 6.9 g/dL Normal 6.4-8.9 Albumin 3.5 g/dL Normal 3.2-5.2 Globulin 3.4 g/dL Normal 2-4 Albumin/Globulin Ratio 1.0 Normal 1-3 Total Bilirubin 1.20 mg/dL High 0.2-1.0 Alkaline Phosphatase 160 U/L High 34-104 Alt 42 U/L Normal 7-52 Ast 76 U/L High 13-39 Egfr Non- 44.8 >60 Egfr 54.3 >60 13 CBC Auto Diff 09/22/2018 [facility] White Blood 3.7 10^3/uL Normal 3.5-10.8 [phone] Count Red Blood Count 2.67 10^6/uL Low 3.70-4.87 Hemoglobin 9.3 g/dL Low 12.0-16.0 Hematocrit 28 % Low 35-47 Mean Corpuscular Volume 103 fL High 80-97 Mean Corpuscular Hemoglobin 35 pg High 27-31 Mean Corpuscular HGB Conc 34 g/dL Normal 31-36 Red Cell Distribution Width 25 % High 10-15 Platelet Count 179 10^3/uL Normal 150-450 Mean Platelet Volume 9.4 fL Normal 7.4-10.4 Abs Neutrophils 1.3 10^3/uL Low 1.5-7.7 Abs Lymphocytes 1.0 10^3/uL Normal 1.0-4.8 Abs Monocytes 1.3 10^3/uL High 0-0.8 Abs Eosinophils 0.1 10^3/uL Normal 0-0.6 Abs Basophils 0.0 10^3/uL Normal 0-0.2 Abs Nucleated RBC 0.0 10^3/uL Granulocyte % 36.1 % Lymphocyte % 26.0 % Monocyte % 34.3 % Eosinophil % 2.4 % Basophil % 1.2 % Nucleated Red Blood Cells % 0.1 Comp Metabolic Panel 09/14/2018 [facility] Sodium 131 mmol/L Low 135- 145 [phone] Potassium 3.7 mmol/L Normal 3.5-5.0 Chloride 94 mmol/L Low 101-111 Co2 Carbon Dioxide 31 mmol/L Normal 22-32 Anion Gap 6 mmol/L Normal 2-11 Glucose 135 mg/dL High 70-100 Blood Urea Nitrogen 31 mg/dL High 6-24 Creatinine 1.30 mg/dL High 0.51-0.95 BUN/Creatinine Ratio 23.8 High 8-20 Calcium 10.3 mg/dL Normal 8.6-10.3 Total Protein 6.3 g/dL Low 6.4-8.9 Albumin 3.2 g/dL Normal 3.2-5.2 Globulin 3.1 g/dL Normal 2-4 Albumin/Globulin Ratio 1.0 Normal 1-3 Total Bilirubin 1.10 mg/dL High 0.2-1.0 Alkaline Phosphatase 160 U/L High 34-104 Alt 45 U/L Normal 7-52 Ast 71 U/L High 13-39 Egfr Non- 39.3 >60 Egfr 47.6 >60 14 Laboratory test 09/14/2018 [facility] Magnesium 1.5 mg/dL Low 1.9- 2.7 finding [phone] CBC Auto Diff 09/14/2018 [facility] White Blood 2.0 10^3/uL Low 3.5- 10.8 [phone] Count Red Blood Count 1.95 10^6/uL Low 3.70-4.87 Hemoglobin 6.9 g/dL Low 12.0-16.0 Hematocrit 20 % Low 35-47 Mean Corpuscular Volume 105 fL High 80-97 Mean Corpuscular Hemoglobin 36 pg High 27-31 Mean Corpuscular HGB Conc 34 g/dL Normal 31-36 Red Cell Distribution Width 20 % High 10-15 Platelet Count 31 10^3/uL Low 150-450 Mean Platelet Volume 10.1 fL Normal 7.4-10.4 Abs Neutrophils 0.8 10^3/uL Low 1.5-7.7 Abs Lymphocytes 0.9 10^3/uL Low 1.0-4.8 Abs Monocytes 0.2 10^3/uL Normal 0-0.8 Abs Eosinophils 0.1 10^3/uL Normal 0-0.6 Abs Basophils 0.0 10^3/uL Normal 0-0.2 Abs Nucleated RBC 0.0 10^3/uL Granulocyte % 41.3 % Lymphocyte % 44.3 % Monocyte % 10.2 % Eosinophil % 3.5 % Basophil % 0.7 % Nucleated Red Blood Cells % 0.7 Type & Screen 09/14/2018 [facility] Patient Blood Type O Positive [phone] Antibody Screen NEGATIVE Laboratory test 09/14/2018 [facility] Packed Cells SEE RESULTS 15 finding [phone] BELO <SEE NOTE> CBC Auto Diff 09/01/2018 [facility] White Blood 2.6 10^3/uL Low 3.5- 10. [phone] Count 8 Red Blood Count 2.58 10^6/uL Low 3.70-4.87 Hemoglobin 9.4 g/dL Low 12.0-16.0 Hematocrit 27 % Low 35-47 Mean Corpuscular Volume 105 fL High 80-97 Mean Corpuscular Hemoglobin 37 pg High 27-31 Mean Corpuscular HGB Conc 35 g/dL Normal 31-36 Red Cell Distribution Width 21 % High 10-15 Platelet Count 94 10^3/uL Low 150-450 Mean Platelet Volume 8.8 fL Normal 7.4-10.4 Abs Neutrophils 1.5 10^3/uL Normal 1.5-7.7 Abs Lymphocytes 0.9 10^3/uL Low 1.0-4.8 Abs Monocytes 0.2 10^3/uL Normal 0-0.8 Abs Eosinophils 0.0 10^3/uL Normal 0-0.6 Abs Basophils 0.1 10^3/uL Normal 0-0.2 Abs Nucleated RBC 0.0 10^3/uL Granulocyte % 57.6 % Lymphocyte % 32.4 % Monocyte % 6.3 % Eosinophil % 0.6 % Basophil % 3.1 % Nucleated Red Blood Cells % 0.4 Laboratory test finding 09/01/2018 [facility] Magnesium 1.6 mg/dL Low 1.9-2.7 [phone] Comp Metabolic Panel 09/01/2018 [facility] Sodium 132 mmol/L Low 135- 145 [phone] Potassium 3.6 mmol/L Normal 3.5-5.0 Chloride 93 mmol/L Low 101-111 Co2 Carbon Dioxide 34 mmol/L High 22-32 Anion Gap 5 mmol/L Normal 2-11 Glucose 141 mg/dL High 70-100 Blood Urea Nitrogen 32 mg/dL High 6-24 Creatinine 1.23 mg/dL High 0.51-0.95 BUN/Creatinine Ratio 26.0 High 8-20 Calcium 10.4 mg/dL High 8.6-10.3 Total Protein 6.5 g/dL Normal 6.4-8.9 Albumin 3.2 g/dL Normal 3.2-5.2 Globulin 3.3 g/dL Normal 2-4 Albumin/Globulin Ratio 1.0 Normal 1-3 Total Bilirubin 1.10 mg/dL High 0.2-1.0 Alkaline Phosphatase 144 U/L High 34-104 Alt 47 U/L Normal 7-52 Ast 90 U/L High 13-39 Egfr Non- 41.9 >60 Egfr 50.7 >60 16 CBC Auto Diff 08/26/2018 [facility] White Blood 5.6 10^3/uL Normal 3.5-10.8 [phone] Count Red Blood Count 2.57 10^6/uL Low 3.70-4.87 Hemoglobin 9.2 g/dL Low 12.0-16.0 Hematocrit 28 % Low 35-47 Mean Corpuscular Volume 107 fL High 80-97 Mean Corpuscular Hemoglobin 36 pg High 27-31 Mean Corpuscular HGB Conc 34 g/dL Normal 31-36 Red Cell Distribution Width 22 % High 10-15 Platelet Count 145 10^3/uL Low 150-450 Mean Platelet Volume 8.8 fL Normal 7.4-10.4 Abs Neutrophils 3.5 10^3/uL Normal 1.5-7.7 Abs Lymphocytes 1.1 10^3/uL Normal 1.0-4.8 Abs Monocytes 0.9 10^3/uL High 0-0.8 Abs Eosinophils 0.0 10^3/uL Normal 0-0.6 Abs Basophils 0.0 10^3/uL Normal 0-0.2 Abs Nucleated RBC 0.0 10^3/uL Granulocyte % 62.0 % Lymphocyte % 20.5 % Monocyte % 15.8 % Eosinophil % 0.8 % Basophil % 0.9 % Nucleated Red Blood Cells % 0.0 Comp Metabolic Panel 08/26/2018 [facility] Sodium 135 mmol/L Normal 135-145 [phone] Potassium 3.6 mmol/L Normal 3.5-5.0 Chloride 95 mmol/L Low 101-111 Co2 Carbon Dioxide 34 mmol/L High 22-32 Anion Gap 6 mmol/L Normal 2-11 Glucose 103 mg/dL High 70-100 Blood Urea Nitrogen 19 mg/dL Normal 6-24 Creatinine 1.01 mg/dL High 0.51-0.95 BUN/Creatinine Ratio 18.8 Normal 8-20 Calcium 10.0 mg/dL Normal 8.6-10.3 Total Protein 6.3 g/dL Low 6.4-8.9 Albumin 3.1 g/dL Low 3.2-5.2 Globulin 3.2 g/dL Normal 2-4 Albumin/Globulin Ratio 1.0 Normal 1-3 Total Bilirubin 1.10 mg/dL High 0.2-1.0 Alkaline Phosphatase 148 U/L High 34-104 Alt 33 U/L Normal 7-52 Ast 78 U/L High 13-39 Egfr Non- 52.6 >60 Egfr 63.7 >60 17 Laboratory test 08/26/2018 [facility] Magnesium 1.7 mg/dL Low 1.9- 2.7 finding [phone] CBC Auto Diff 08/18/2018 [facility] White Blood 2.6 10^3/uL Low 3.5- 10.8 [phone] Count Red Blood Count 2.50 10^6/uL Low 3.70-4.87 Hemoglobin 9.1 g/dL Low 12.0-16.0 Hematocrit 27 % Low 35-47 Mean Corpuscular Volume 107 fL High 80-97 18 Mean Corpuscular Hemoglobin 36 pg High 27-31 Mean Corpuscular HGB Conc 34 g/dL Normal 31-36 Red Cell Distribution Width 23 % High 10-15 19 Platelet Count 134 10^3/uL Low 150-450 Mean Platelet Volume 9.6 fL Normal 7.4-10.4 Abs Neutrophils 0.7 10^3/uL Low 1.5-7.7 Abs Lymphocytes 0.9 10^3/uL Low 1.0-4.8 Abs Monocytes 0.8 10^3/uL Normal 0-0.8 Abs Eosinophils 0.1 10^3/uL Normal 0-0.6 Abs Basophils 0.0 10^3/uL Normal 0-0.2 Abs Nucleated RBC 0.0 10^3/uL Granulocyte % 28.7 % Lymphocyte % 33.8 % Monocyte % 32.9 % Eosinophil % 3.7 % Basophil % 0.9 % Nucleated Red Blood Cells % 0.1 Comp Metabolic Panel 08/18/2018 [facility] Sodium 133 mmol/L Low 135- 145 [phone] Potassium 4.3 mmol/L Normal 3.5-5.0 Chloride 101 mmol/L Normal 101-111 Co2 Carbon Dioxide 28 mmol/L Normal 22-32 Anion Gap 4 mmol/L Normal 2-11 Glucose 98 mg/dL Normal 70-100 Blood Urea Nitrogen 21 mg/dL Normal 6-24 Creatinine 1.11 mg/dL High 0.51-0.95 BUN/Creatinine Ratio 18.9 Normal 8-20 Calcium 9.7 mg/dL Normal 8.6-10.3 Total Protein 6.1 g/dL Low 6.4-8.9 Albumin 3.1 g/dL Low 3.2-5.2 Globulin 3.0 g/dL Normal 2-4 Albumin/Globulin Ratio 1.0 Normal 1-3 Total Bilirubin 0.80 mg/dL Normal 0.2-1.0 Alkaline Phosphatase 142 U/L High 34-104 Alt 28 U/L Normal 7-52 Ast 56 U/L High 13-39 Egfr Non- 47.2 >60 Egfr 57.1 >60 20 Laboratory test 08/18/2018 [facility] Magnesium 1.6 mg/dL Low 1.9- 2.7 finding [phone] Laboratory test 08/11/2018 [facility] Packed Cells SEE RESULTS 21 finding [phone] BELO <SEE NOTE> Type & Screen 08/11/2018 [facility] Patient Blood O Positive [phone] Type Antibody Screen NEGATIVE CBC Auto Diff 08/11/2018 [facility] Abs Neutrophils 0.5 10^3/uL Low 1.5-7.7 [phone] White Blood Count 2.0 10^3/uL Low 3.5-10.8 Red Blood Count 1.89 10^6/uL Low 3.70-4.87 Hemoglobin 7.0 g/dL Low 12.0-16.0 Hematocrit 21 % Low 35-47 Mean Corpuscular Volume 110 fL High 80-97 Mean Corpuscular Hemoglobin 37 pg High 27-31 Mean Corpuscular HGB Conc 34 g/dL Normal 31-36 Red Cell Distribution Width 18 % High 10-15 Platelet Count 46 10^3/uL Low 150-450 22 Mean Platelet Volume 12.2 fL High 7.4-10.4 Abs Lymphocytes 1.0 10^3/uL Normal 1.0-4.8 Abs Monocytes 0.4 10^3/uL Normal 0-0.8 Abs Eosinophils 0.1 10^3/uL Normal 0-0.6 Abs Basophils 0.0 10^3/uL Normal 0-0.2 Abs Nucleated RBC 0.0 10^3/uL Granulocyte % 26.7 % Lymphocyte % 47.5 % Monocyte % 20.7 % Eosinophil % 4.6 % Basophil % 0.5 % Nucleated Red Blood Cells % 0.4 Laboratory test finding 08/11/2018 [facility] Magnesium 1.6 mg/dL Low 1.9-2.7 [phone] Comp Metabolic Panel 08/11/2018 [facility] Sodium 132 mmol/L Low 135- 145 [phone] Potassium 3.8 mmol/L Normal 3.5-5.0 Chloride 98 mmol/L Low 101-111 Co2 Carbon Dioxide 29 mmol/L Normal 22-32 Anion Gap 5 mmol/L Normal 2-11 Glucose 132 mg/dL High 70-100 Blood Urea Nitrogen 26 mg/dL High 6-24 Creatinine 1.15 mg/dL High 0.51-0.95 BUN/Creatinine Ratio 22.6 High 8-20 Calcium 9.6 mg/dL Normal 8.6-10.3 Total Protein 5.9 g/dL Low 6.4-8.9 Albumin 3.1 g/dL Low 3.2-5.2 Globulin 2.8 g/dL Normal 2-4 Albumin/Globulin Ratio 1.1 Normal 1-3 Total Bilirubin 0.80 mg/dL Normal 0.2-1.0 Alkaline Phosphatase 133 U/L High 34-104 Alt 29 U/L Normal 7-52 Ast 55 U/L High 13-39 Egfr Non- 45.3 >60 Egfr 54.8 >60 23 Comp Metabolic Panel 07/28/2018 [facility] Sodium 135 mmol/L Normal 135-145 [phone] Potassium 3.9 mmol/L Normal 3.5-5.0 Chloride 98 mmol/L Low 101-111 Co2 Carbon Dioxide 33 mmol/L High 22-32 Anion Gap 4 mmol/L Normal 2-11 Calcium 10.7 mg/dL High 8.6-10.3 Albumin 3.1 g/dL Low 3.2-5.2 Total Bilirubin 1.00 mg/dL Normal 0.2-1.0 Glucose 103 mg/dL High 70-100 Blood Urea Nitrogen 23 mg/dL Normal 6-24 Creatinine 1.03 mg/dL High 0.51-0.95 BUN/Creatinine Ratio 22.3 High 8-20 Total Protein 6.2 g/dL Low 6.4-8.9 Globulin 3.1 g/dL Normal 2-4 Albumin/Globulin Ratio 1.0 Normal 1-3 Alkaline Phosphatase 138 U/L High 34-104 Alt 32 U/L Normal 7-52 Ast 53 U/L High 13-39 Egfr Non- 51.4 >60 Egfr 62.2 >60 24 Laboratory test 07/28/2018 [facility] Magnesium 1.3 mg/dL Low 1.9- 2.7 finding [phone] CBC Auto Diff 07/28/2018 [facility] White Blood 3.0 10^3/uL Low 3.5- 10.8 [phone] Count Red Blood Count 2.39 10^6/uL Low 3.70-4.87 Hemoglobin 8.9 g/dL Low 12.0-16.0 Hematocrit 26 % Low 35-47 Mean Corpuscular Volume 110 fL High 80-97 Mean Corpuscular Hemoglobin 37 pg High 27-31 Mean Corpuscular HGB Conc 34 g/dL Normal 31-36 Red Cell Distribution Width 18 % High 10-15 Platelet Count 104 10^3/uL Low 150-450 Mean Platelet Volume 9.5 fL Normal 7.4-10.4 Abs Neutrophils 1.3 10^3/uL Low 1.5-7.7 Abs Lymphocytes 1.2 10^3/uL Normal 1.0-4.8 Abs Monocytes 0.4 10^3/uL Normal 0-0.8 Abs Eosinophils 0.0 10^3/uL Normal 0-0.6 Abs Basophils 0.0 10^3/uL Normal 0-0.2 Abs Nucleated RBC 0.0 10^3/uL Granulocyte % 44.8 % Lymphocyte % 41.2 % Monocyte % 11.9 % Eosinophil % 0.6 % Basophil % 1.5 % Nucleated Red Blood Cells % 0.0 CBC Auto Diff 07/21/2018 [facility] White Blood 4.1 10^3/uL Normal 3.5-10.8 [phone] Count Red Blood Count 2.59 10^6/uL Low 3.70-4.87 Hemoglobin 9.6 g/dL Low 12.0-16.0 Hematocrit 29 % Low 35-47 Mean Corpuscular Volume 111 fL High 80-97 Mean Corpuscular Hemoglobin 37 pg High 27-31 Mean Corpuscular HGB Conc 34 g/dL Normal 31-36 Red Cell Distribution Width 20 % High 10.5-15 Platelet Count 148 10^3/uL Low 150-450 Mean Platelet Volume 10.3 fL Normal 7.4-10.4 Abs Neutrophils 1.2 10^3/uL Low 1.5-7.7 Abs Lymphocytes 1.6 10^3/uL Normal 1.0-4.8 Abs Monocytes 1.1 10^3/uL High 0-0.8 Abs Eosinophils 0.2 10^3/uL Normal 0-0.6 Abs Basophils 0.0 10^3/uL Normal 0-0.2 Abs Nucleated RBC 0.0 10^3/uL Granulocyte % 30.0 % Lymphocyte % 39.4 % Monocyte % 25.7 % Eosinophil % 3.9 % Basophil % 1.0 % Nucleated Red Blood Cells % 0.1 Comp Metabolic Panel 07/21/2018 [facility] Sodium 135 mmol/L Normal 135-145 [phone] Potassium 3.8 mmol/L Normal 3.5-5.0 Chloride 100 mmol/L Low 101-111 Co2 Carbon Dioxide 32 mmol/L Normal 22-32 Anion Gap 3 mmol/L Normal 2-11 Glucose 116 mg/dL High 70-100 Blood Urea Nitrogen 17 mg/dL Normal 6-24 Creatinine 0.94 mg/dL Normal 0.51-0.95 BUN/Creatinine Ratio 18.1 Normal 8-20 Calcium 9.8 mg/dL Normal 8.6-10.3 Total Protein 6.1 g/dL Low 6.4-8.9 Albumin 3.1 g/dL Low 3.2-5.2 Globulin 3.0 g/dL Normal 2-4 Albumin/Globulin Ratio 1.0 Normal 1-3 Total Bilirubin 1.10 mg/dL High 0.2-1.0 Alkaline Phosphatase 147 U/L High 34-104 Alt 30 U/L Normal 7-52 Ast 58 U/L High 13-39 Egfr Non- 57.2 >60 Egfr 69.2 >60 25 Laboratory test 07/21/2018 [facility] Magnesium 1.7 mg/dL Low 1.9- 2.7 finding [phone] Urine Culture And 07/10/2018 [facility] Urine Culture SEE RESULT 26 Sensitivities [phone] BELOW Laboratory test 07/10/2018 [facility] Magnesium 1.5 mg/dL Low 1.9- 2.7 finding [phone] C Reactive Protein 38.97 mg/L High <8.01 Troponin-I (TnI) 0.05 ng/mL Critical high <0.04 27 TSH (Thyroid Stim Horm) 1.68 mcIU/mL Normal 0.34-5.60 Comp Metabolic Panel 07/10/2018 [facility] Sodium 132 mmol/L Low 135- 145 [phone] Potassium 4.3 mmol/L Normal 3.5-5.0 Chloride 98 mmol/L Low 101-111 Co2 Carbon Dioxide 29 mmol/L Normal 22-32 Anion Gap 5 mmol/L Normal 2-11 Glucose 93 mg/dL Normal 70-100 Blood Urea Nitrogen 24 mg/dL Normal 6-24 Creatinine 1.19 mg/dL High 0.51-0.95 BUN/Creatinine Ratio 20.2 High 8-20 Calcium 9.9 mg/dL Normal 8.6-10.3 Total Protein 6.6 g/dL Normal 6.4-8.9 Albumin 3.4 g/dL Normal 3.2-5.2 Globulin 3.2 g/dL Normal 2-4 Albumin/Globulin Ratio 1.1 Normal 1-3 Total Bilirubin 1.00 mg/dL Normal 0.2-1.0 Alkaline Phosphatase 112 U/L High 34-104 Alt 46 U/L Normal 7-52 Ast 81 U/L High 13-39 Egfr Non- 43.5 >60 Egfr 52.7 >60 28 Laboratory test 07/10/2018 [facility] Lactic Acid 1.1 mmol/L Normal 0.5-2.0 29 finding [phone] CBC Auto Diff 07/10/2018 [facility] White Blood 3.7 10^3/uL Normal 3.5-10.8 [phone] Count Red Blood Count 2.56 10^6/uL Low 3.70-4.87 Hemoglobin 9.4 g/dL Low 12.0-16.0 Hematocrit 28 % Low 35-47 Mean Corpuscular Volume 110 fL High 80-97 30 Mean Corpuscular Hemoglobin 37 pg High 27-31 Mean Corpuscular HGB Conc 34 g/dL Normal 31-36 Red Cell Distribution Width 19 % High 10.5-15 Platelet Count 28 10^3/uL Low 150-450 31 Mean Platelet Volume 9.1 fL Normal 7.4-10.4 Abs Neutrophils 2.4 10^3/uL Normal 1.5-7.7 Abs Lymphocytes 0.7 10^3/uL Low 1.0-4.8 Abs Monocytes 0.5 10^3/uL Normal 0-0.8 Abs Eosinophils 0.0 10^3/uL Normal 0-0.6 Abs Basophils 0.0 10^3/uL Normal 0-0.2 Abs Nucleated RBC 0.0 10^3/uL Granulocyte % 66.4 % Lymphocyte % 19.6 % Monocyte % 12.7 % Eosinophil % 0.7 % Basophil % 0.6 % Nucleated Red Blood Cells % 0.1 Urinalysis Profile 07/10/2018 [facility] Urine Color Mariah [phone] Urine Appearance Cloudy Urine Specific [place] 1.010 Normal 1.010-1.030 Urine pH 5.0 Normal 5-9 Urine Urobilinogen Negative Negative Urine Ketones Negative Negative Urine Protein Negative Negative Urine Leukocytes Negative Negative Urine Blood 1+ Abnormal Negative * * Abnormal Negative 32 Urine Nitrite Negative Negative Urine Bilirubin Negative Negative Urine Glucose Negative Negative Urine White Blood Cell Trace(0-5/hpf) Absent Urine Red Blood Cell 2+(6-10/hpf) Abnormal Absent Urine Bacteria Absent Absent Urine Squamous Epithelial Cell Present Abnormal Absent CBC Auto Diff 06/30/2018 [facility] White Blood 4.3 10^3/uL Normal 3.5-10.8 [phone] Count Red Blood Count 2.41 10^6/uL Low 3.70-4.87 Hemoglobin 8.9 g/dL Low 12.0-16.0 Hematocrit 27 % Low 35-47 Mean Corpuscular Volume 111 fL High 80-97 Mean Corpuscular Hemoglobin 37 pg High 27-31 Mean Corpuscular HGB Conc 33 g/dL Normal 31-36 Red Cell Distribution Width 21 % High 10.5-15 Platelet Count 138 10^3/uL Low 150-450 Mean Platelet Volume 9.4 fL Normal 7.4-10.4 Abs Neutrophils 2.4 10^3/uL Normal 1.5-7.7 Abs Lymphocytes 0.9 10^3/uL Low 1.0-4.8 Abs Monocytes 0.8 10^3/uL Normal 0-0.8 Abs Eosinophils 0.1 10^3/uL Normal 0-0.6 Abs Basophils 0.1 10^3/uL Normal 0-0.2 Abs Nucleated RBC 0.0 10^3/uL Granulocyte % 55.9 % Lymphocyte % 21.5 % Monocyte % 18.7 % Eosinophil % 1.5 % Basophil % 2.4 % Nucleated Red Blood Cells % 0.1 Comp Metabolic Panel 06/30/2018 [facility] Sodium 133 mmol/L Low 135- 145 [phone] Potassium 4.0 mmol/L Normal 3.5-5.0 Chloride 101 mmol/L Normal 101-111 Co2 Carbon Dioxide 30 mmol/L Normal 22-32 Anion Gap 2 mmol/L Normal 2-11 Glucose 123 mg/dL High 70-100 Blood Urea Nitrogen 23 mg/dL Normal 6-24 Creatinine 1.06 mg/dL High 0.51-0.95 BUN/Creatinine Ratio 21.7 High 8-20 Calcium 9.5 mg/dL Normal 8.6-10.3 Total Protein 6.1 g/dL Low 6.4-8.9 Albumin 3.1 g/dL Low 3.2-5.2 Globulin 3.0 g/dL Normal 2-4 Albumin/Globulin Ratio 1.0 Normal 1-3 Total Bilirubin 0.60 mg/dL Normal 0.2-1.0 Alkaline Phosphatase 134 U/L High 34-104 Alt 25 U/L Normal 7-52 Ast 53 U/L High 13-39 Egfr Non- 49.8 >60 Egfr 60.2 >60 33 Laboratory test 06/30/2018 [facility] Magnesium 1.5 mg/dL Low 1.9- 2.7 finding [phone] CBC Auto Diff 06/23/2018 [facility] White Blood 2.4 10^3/uL Low 3.5- 10.8 [phone] Count Red Blood Count 2.22 10^6/uL Low 3.70-4.87 Hemoglobin 8.4 g/dL Low 12.0-16.0 Hematocrit 25 % Low 35-47 Mean Corpuscular Volume 111 fL High 80-97 Mean Corpuscular Hemoglobin 38 pg High 27-31 Mean Corpuscular HGB Conc 34 g/dL Normal 31-36 Red Cell Distribution Width 22 % High 10.5-15 Platelet Count 151 10^3/uL Normal 150-450 Mean Platelet Volume 9.6 fL Normal 7.4-10.4 Abs Neutrophils 0.3 10^3/uL Low 1.5-7.7 Abs Lymphocytes 1.1 10^3/uL Normal 1.0-4.8 Abs Monocytes 0.8 10^3/uL Normal 0-0.8 Abs Eosinophils 0.1 10^3/uL Normal 0-0.6 Abs Basophils 0.0 10^3/uL Normal 0-0.2 Abs Nucleated RBC 0.0 10^3/uL Granulocyte % 14.3 % Lymphocyte % 46.3 % Monocyte % 32.5 % Eosinophil % 5.6 % Basophil % 1.3 % Nucleated Red Blood Cells % 0.1 Laboratory test 06/23/2018 [facility] Magnesium 1.4 mg/dL Low 1.9- 2.7 finding [phone] Comp Metabolic Panel 06/23/2018 [facility] Sodium 135 mmol/L Normal 135-145 [phone] Potassium 4.1 mmol/L Normal 3.5-5.0 Chloride 102 mmol/L Normal 101-111 Co2 Carbon Dioxide 29 mmol/L Normal 22-32 Anion Gap 4 mmol/L Normal 2-11 Glucose 91 mg/dL Normal 70-100 Blood Urea Nitrogen 19 mg/dL Normal 6-24 Creatinine 0.95 mg/dL Normal 0.51-0.95 BUN/Creatinine Ratio 20.0 Normal 8-20 Calcium 9.7 mg/dL Normal 8.6-10.3 Total Protein 6.1 g/dL Low 6.4-8.9 Albumin 3.2 g/dL Normal 3.2-5.2 Globulin 2.9 g/dL Normal 2-4 Albumin/Globulin Ratio 1.1 Normal 1-3 Total Bilirubin 0.70 mg/dL Normal 0.2-1.0 Alkaline Phosphatase 127 U/L High 34-104 Alt 24 U/L Normal 7-52 Ast 46 U/L High 13-39 Egfr Non- 56.5 >60 Egfr 68.3 >60 34 Urinalysis Profile 06/20/2018 [facility] Urine Color Yellow [phone] Urine Appearance Cloudy Urine Specific [place] 1.004 Low 1.010-1.030 Urine pH 6.0 Normal 5-9 Urine Urobilinogen Negative Negative Urine Ketones Negative Negative Urine Protein Negative Negative Urine Leukocytes Negative Negative Urine Blood Negative Negative Urine Nitrite Negative Negative Urine Bilirubin Negative Negative Urine Glucose Negative Negative Laboratory test 06/20/2018 [facility] B-Type 186 pg/mL High <=100 finding [phone] Natriuretic Peptide BNP Comp Metabolic 06/20/2018 [facility] Sodium 135 mmol/L Normal 135- 145 Panel [phone] Potassium 3.7 mmol/L Normal 3.5-5.0 Chloride 101 mmol/L Normal 101-111 Co2 Carbon Dioxide 29 mmol/L Normal 22-32 Anion Gap 5 mmol/L Normal 2-11 Glucose 102 mg/dL High 70-100 Blood Urea Nitrogen 17 mg/dL Normal 6-24 Creatinine 1.02 mg/dL High 0.51-0.95 BUN/Creatinine Ratio 16.7 Normal 8-20 Calcium 9.9 mg/dL Normal 8.6-10.3 Total Protein 6.5 g/dL Normal 6.4-8.9 Albumin 3.4 g/dL Normal 3.2-5.2 Globulin 3.1 g/dL Normal 2-4 Albumin/Globulin Ratio 1.1 Normal 1-3 Total Bilirubin 0.70 mg/dL Normal 0.2-1.0 Alkaline Phosphatase 144 U/L High 34-104 Alt 27 U/L Normal 7-52 Ast 48 U/L High 13-39 Egfr Non- 52.0 >60 Egfr 62.9 >60 35 CBC Auto Diff 06/20/2018 [facility] White Blood Count 2.2 10^3/uL Low 3.5-10.8 [phone] Red Blood Count 2.27 10^6/uL Low 3.70-4.87 Hemoglobin 8.3 g/dL Low 12.0-16.0 Hematocrit 25 % Low 33-41 Mean Corpuscular Volume 110 fL High 80-97 Mean Corpuscular Hemoglobin 37 pg High 27-31 Mean Corpuscular HGB Conc 34 g/dL Normal 31-36 Red Cell Distribution Width 20 % High 10.5-15 Platelet Count 129 10^3/uL Low 150-450 Mean Platelet Volume 10.2 fL Normal 7.4-10.4 Abs Neutrophils 0.5 10^3/uL Low 1.5-7.7 Abs Lymphocytes 0.8 10^3/uL Low 1.0-4.8 Abs Monocytes 0.7 10^3/uL Normal 0-0.8 Abs Eosinophils 0.2 10^3/uL Normal 0-0.6 Abs Basophils 0 10^3/uL Normal 0-0.2 Abs Nucleated RBC 0 10^3/uL Granulocyte % 21.3 % Lymphocyte % 35.2 % Monocyte % 31.9 % Eosinophil % 10.6 % Basophil % 1.0 % Nucleated Red Blood Cells % 0.5 Comp Metabolic Panel 06/16/2018 [facility] Sodium 132 mmol/L Low 135- 145 [phone] Potassium 3.9 mmol/L Normal 3.5-5.0 Chloride 101 mmol/L Normal 101-111 Co2 Carbon Dioxide 26 mmol/L Normal 22-32 Anion Gap 5 mmol/L Normal 2-11 Glucose 129 mg/dL High 70-100 Blood Urea Nitrogen 17 mg/dL Normal 6-24 Creatinine 0.92 mg/dL Normal 0.51-0.95 BUN/Creatinine Ratio 18.5 Normal 8-20 Calcium 9.5 mg/dL Normal 8.6-10.3 Total Protein 6.1 g/dL Low 6.4-8.9 Albumin 3.2 g/dL Normal 3.2-5.2 Globulin 2.9 g/dL Normal 2-4 Albumin/Globulin Ratio 1.1 Normal 1-3 Total Bilirubin 0.80 mg/dL Normal 0.2-1.0 Alkaline Phosphatase 124 U/L High 34-104 Alt 33 U/L Normal 7-52 Ast 52 U/L High 13-39 Egfr Non- 58.6 >60 Egfr 70.9 >60 36 Laboratory test 06/16/2018 [facility] Magnesium 1.3 mg/dL Low 1.9- 2.7 finding [phone] CBC Auto Diff 06/16/2018 [facility] White Blood 2.4 10^3/uL Low 3.5- 10.8 [phone] Count Red Blood Count 2.08 10^6/uL Low 3.70-4.87 Hemoglobin 7.6 g/dL Low 12.0-16.0 Hematocrit 23 % Low 33-41 Mean Corpuscular Volume 108 fL High 80-97 Mean Corpuscular Hemoglobin 37 pg High 27-31 Mean Corpuscular HGB Conc 34 g/dL Normal 31-36 Red Cell Distribution Width 17 % High 10.5-15 Abs Neutrophils 1.0 10^3/uL Low 1.5-7.7 Platelet Count 49 10^3/uL Low 150-450 37 Mean Platelet Volume 10.6 fL High 7.4-10.4 Abs Lymphocytes 1.0 10^3/uL Normal 1.0-4.8 Abs Monocytes 0.3 10^3/uL Normal 0-0.8 Abs Eosinophils 0.1 10^3/uL Normal 0-0.6 Abs Basophils 0 10^3/uL Normal 0-0.2 Abs Nucleated RBC 0 10^3/uL Granulocyte % 40.1 % Lymphocyte % 42.0 % Monocyte % 11.8 % Eosinophil % 5.3 % Basophil % 0.8 % Nucleated Red Blood Cells % 0.4 CBC Auto Diff 06/02/2018 [facility] White Blood Count 2.9 10^3/uL Low 3.5-10.8 [phone] Red Blood Count 2.71 10^6/uL Low 3.70-4.87 Hemoglobin 9.6 g/dL Low 12.0-16.0 Hematocrit 29 % Low 33-41 Mean Corpuscular Volume 106 fL High 80-97 Mean Corpuscular Hemoglobin 36 pg High 27-31 Mean Corpuscular HGB Conc 34 g/dL Normal 31-36 Red Cell Distribution Width 18 % High 10.5-15 Platelet Count 94 10^3/uL Low 150-450 38 Mean Platelet Volume 8.5 fL Normal 7.4-10.4 Abs Neutrophils 1.4 10^3/uL Low 1.5-7.7 Abs Lymphocytes 1.1 10^3/uL Normal 1.0-4.8 Abs Monocytes 0.3 10^3/uL Normal 0-0.8 Abs Eosinophils 0 10^3/uL Normal 0-0.6 Abs Basophils 0 10^3/uL Normal 0-0.2 Abs Nucleated RBC 0 10^3/uL Granulocyte % 49.2 % Lymphocyte % 39.6 % Monocyte % 9.1 % Eosinophil % 1.3 % Basophil % 0.8 % Nucleated Red Blood Cells % 0 Laboratory test 06/02/2018 [facility] Magnesium 1.3 mg/dL Low 1.9- 2.7 finding [phone] Comp Metabolic Panel 06/02/2018 [facility] Sodium 135 mmol/L Normal 135-145 [phone] Potassium 4.0 mmol/L Normal 3.5-5.0 Chloride 99 mmol/L Low 101-111 Co2 Carbon Dioxide 32 mmol/L Normal 22-32 Anion Gap 4 mmol/L Normal 2-11 Glucose 176 mg/dL High 70-100 Blood Urea Nitrogen 26 mg/dL High 6-24 Creatinine 1.08 mg/dL High 0.51-0.95 BUN/Creatinine Ratio 24.1 High 8-20 Calcium 10.6 mg/dL High 8.6-10.3 Total Protein 6.3 g/dL Low 6.4-8.9 Albumin 3.2 g/dL Normal 3.2-5.2 Globulin 3.1 g/dL Normal 2-4 Albumin/Globulin Ratio 1.0 Normal 1-3 Total Bilirubin 0.90 mg/dL Normal 0.2-1.0 Alkaline Phosphatase 143 U/L High 34-104 Alt 43 U/L Normal 7-52 Ast 56 U/L High 13-39 Egfr Non- 48.7 >60 Egfr 58.9 >60 39 CBC Auto Diff 05/26/2018 [facility] White Blood 6.0 10^3/uL Normal 3.5-10.8 [phone] Count Red Blood Count 2.84 10^6/uL Low 3.70-4.87 Hemoglobin 10.2 g/dL Low 12.0-16.0 Hematocrit 30 % Low 33-41 Mean Corpuscular Volume 107 fL High 80-97 Mean Corpuscular Hemoglobin 36 pg High 27-31 Mean Corpuscular HGB Conc 34 g/dL Normal 31-36 Red Cell Distribution Width 19 % High 10.5-15 Platelet Count 159 10^3/uL Normal 150-450 Mean Platelet Volume 9.0 fL Normal 7.4-10.4 Abs Neutrophils 3.9 10^3/uL Normal 1.5-7.7 Abs Lymphocytes 1.1 10^3/uL Normal 1.0-4.8 Abs Monocytes 0.9 10^3/uL High 0-0.8 Abs Eosinophils 0 10^3/uL Normal 0-0.6 Abs Basophils 0 10^3/uL Normal 0-0.2 Abs Nucleated RBC 0 10^3/uL Granulocyte % 65.9 % Lymphocyte % 18.0 % Monocyte % 14.9 % Eosinophil % 0.6 % Basophil % 0.6 % Nucleated Red Blood Cells % 0.1 Comp Metabolic Panel 05/26/2018 [facility] Sodium 134 mmol/L Low 135- 145 [phone] Potassium 3.9 mmol/L Normal 3.5-5.0 Chloride 99 mmol/L Low 101-111 Co2 Carbon Dioxide 29 mmol/L Normal 22-32 Anion Gap 6 mmol/L Normal 2-11 Glucose 148 mg/dL High 70-100 Blood Urea Nitrogen 17 mg/dL Normal 6-24 Creatinine 0.92 mg/dL Normal 0.51-0.95 BUN/Creatinine Ratio 18.5 Normal 8-20 Calcium 10.1 mg/dL Normal 8.6-10.3 Total Protein 6.5 g/dL Normal 6.4-8.9 Albumin 3.2 g/dL Normal 3.2-5.2 Globulin 3.3 g/dL Normal 2-4 Albumin/Globulin Ratio 1.0 Normal 1-3 Total Bilirubin 0.70 mg/dL Normal 0.2-1.0 Alkaline Phosphatase 145 U/L High 34-104 Alt 26 U/L Normal 7-52 Ast 52 U/L High 13-39 Egfr Non- 58.6 >60 Egfr 70.9 >60 40 Laboratory test finding 05/26/2018 [facility] Magnesium 1.4 mg/dL Low 1.9-2.7 [phone] Comp Metabolic Panel 05/19/2018 [facility] Sodium 134 mmol/L Low 135- 145 [phone] Potassium 4.1 mmol/L Normal 3.5-5.0 Chloride 99 mmol/L Low 101-111 Co2 Carbon Dioxide 30 mmol/L Normal 22-32 Anion Gap 5 mmol/L Normal 2-11 Glucose 188 mg/dL High 70-100 Blood Urea Nitrogen 18 mg/dL Normal 6-24 Creatinine 0.83 mg/dL Normal 0.51-0.95 BUN/Creatinine Ratio 21.7 High 8-20 Calcium 9.6 mg/dL Normal 8.6-10.3 Total Protein 6.1 g/dL Low 6.4-8.9 Albumin 3.2 g/dL Normal 3.2-5.2 Globulin 2.9 g/dL Normal 2-4 Albumin/Globulin Ratio 1.1 Normal 1-3 Total Bilirubin 1.00 mg/dL Normal 0.2-1.0 Alkaline Phosphatase 122 U/L High 34-104 Alt 28 U/L Normal 7-52 Ast 45 U/L High 13-39 Egfr Non- 66.0 >60 Egfr 79.8 >60 41 Laboratory test 05/19/2018 [facility] Magnesium 1.5 mg/dL Low 1.9- 2.7 finding [phone] CBC Auto Diff 05/19/2018 [facility] White Blood 2.7 10^3/uL Low 3.5- 10.8 [phone] Count Red Blood Count 2.67 10^6/uL Low 3.70-4.87 Hemoglobin 9.8 g/dL Low 12.0-16.0 Hematocrit 29 % Low 33-41 Mean Corpuscular Volume 108 fL High 80-97 Mean Corpuscular Hemoglobin 37 pg High 27-31 Mean Corpuscular HGB Conc 34 g/dL Normal 31-36 Red Cell Distribution Width 20 % High 10.5-15 Platelet Count 136 10^3/uL Low 150-450 Mean Platelet Volume 9.7 fL Normal 7.4-10.4 Abs Neutrophils 0.6 10^3/uL Low 1.5-7.7 Abs Lymphocytes 1.0 10^3/uL Normal 1.0-4.8 Abs Monocytes 1.0 10^3/uL High 0-0.8 Abs Eosinophils 0.1 10^3/uL Normal 0-0.6 Abs Basophils 0 10^3/uL Normal 0-0.2 Abs Nucleated RBC 0 10^3/uL Granulocyte % 21.3 % Lymphocyte % 36.0 % Monocyte % 37.9 % Eosinophil % 3.3 % Basophil % 1.5 % Nucleated Red Blood Cells % 0.1 1 Because ethnic data is not always readily available, this report includes an eGFR for both -Americans and non- Americans. The National Kidney Disease Education Program (NKDEP) does not endorse the use of the MDRD equation for patients that are not between the ages of 18 and 70, are , have extremes of body size, muscle mass, or nutritional status, or are non- or non-. According to the National Kid[employer], irrespective of diagnosis, the stage of the disease is based on the level of kidney function: Stage Description GFR(mL/min/1.73 m(2)) 1 Kidney damage with normal or decreased GFR 90 2 Kidney damage with mild decrease in GFR 60-89 3 Moderate decrease in GFR 30-59 4 Severe decrease in GFR 15-29 5 Kidney failure <15 (or dialysis) 2 Consistent with Previous Results Reported on 10/20/18 3 Because ethnic data is not always readily available, this report includes an eGFR for both -Americans and non- Americans. The National Kidney Disease Education Program (NKDEP) does not endorse the use of the MDRD equation for patients that are not between the ages of 18 and 70, are , have extremes of body size, muscle mass, or nutritional status, or are non- or non-. According to the National Kid[employer], irrespective of diagnosis, the stage of the disease is based on the level of kidney function: Stage Description GFR(mL/min/1.73 m(2)) 1 Kidney damage with normal or decreased GFR 90 2 Kidney damage with mild decrease in GFR 60-89 3 Moderate decrease in GFR 30-59 4 Severe decrease in GFR 15-29 5 Kidney failure <15 (or dialysis) 4 Because ethnic data is not always readily available, this report includes an eGFR for both -Americans and non- Americans. The National Kidney Disease Education Program (NKDEP) does not endorse the use of the MDRD equation for patients that are not between the ages of 18 and 70, are , have extremes of body size, muscle mass, or nutritional status, or are non- or non-. According to the National Kid[employer], irrespective of diagnosis, the stage of the disease is based on the level of kidney function: Stage Description GFR(mL/min/1.73 m(2)) 1 Kidney damage with normal or decreased GFR 90 2 Kidney damage with mild decrease in GFR 60-89 3 Moderate decrease in GFR 30-59 4 Severe decrease in GFR 15-29 5 Kidney failure <15 (or dialysis) 5 Consistent with Previous Results Reported on 10/04/18 6 Consistent with Previous Results Reported on 10/04/18 7 SEE RESULTS BELOW [id number] OP TRANSFUSED 10/06/18 1152 8 Because ethnic data is not always readily available, this report includes an eGFR for both -Americans and non- Americans. The National Kidney Disease Education Program (NKDEP) does not endorse the use of the MDRD equation for patients that are not between the ages of 18 and 70, are , have extremes of body size, muscle mass, or nutritional status, or are non- or non-. According to the National Kid[employer] Foundation, irrespective of diagnosis, the stage of the disease is based on the level of kidney function: Stage Description GFR(mL/min/1.73 m(2)) 1 Kidney damage with normal or decreased GFR 90 2 Kidney damage with mild decrease in GFR 60-89 3 Moderate decrease in GFR 30-59 4 Severe decrease in GFR 15-29 5 Kidney failure <15 (or dialysis) 9 Consistent with Previous Results Reported on 09/29/18 10 Consistent with Previous Results Reported on 09/29/18 11 Consistent with Previous Results Reported on 09/22/18 12 Because ethnic data is not always readily available, this report includes an eGFR for both -Americans and non- Americans. The National Kidney Disease Education Program (NKDEP) does not endorse the use of the MDRD equation for patients that are not between the ages of 18 and 70, are , have extremes of body size, muscle mass, or nutritional status, or are non- or non-. According to the National Kid[employer], irrespective of diagnosis, the stage of the disease is based on the level of kidney function: Stage Description GFR(mL/min/1.73 m(2)) 1 Kidney damage with normal or decreased GFR 90 2 Kidney damage with mild decrease in GFR 60-89 3 Moderate decrease in GFR 30-59 4 Severe decrease in GFR 15-29 5 Kidney failure <15 (or dialysis) 13 Because ethnic data is not always readily available, this report includes an eGFR for both -Americans and non- Americans. The National Kidney Disease Education Program (NKDEP) does not endorse the use of the MDRD equation for patients that are not between the ages of 18 and 70, are , have extremes of body size, muscle mass, or nutritional status, or are non- or non-. According to the National Kid[employer] Foundation, irrespective of diagnosis, the stage of the disease is based on the level of kidney function: Stage Description GFR(mL/min/1.73 m(2)) 1 Kidney damage with normal or decreased GFR 90 2 Kidney damage with mild decrease in GFR 60-89 3 Moderate decrease in GFR 30-59 4 Severe decrease in GFR 15-29 5 Kidney failure <15 (or dialysis) 14 Because ethnic data is not always readily available, this report includes an eGFR for both -Americans and non- Americans. The National Kidney Disease Education Program (NKDEP) does not endorse the use of the MDRD equation for patients that are not between the ages of 18 and 70, are , have extremes of body size, muscle mass, or nutritional status, or are non- or non-. According to the National Kid[employer] Foundation, irrespective of diagnosis, the stage of the disease is based on the level of kidney function: Stage Description GFR(mL/min/1.73 m(2)) 1 Kidney damage with normal or decreased GFR 90 2 Kidney damage with mild decrease in GFR 60-89 3 Moderate decrease in GFR 30-59 4 Severe decrease in GFR 15-29 5 Kidney failure <15 (or dialysis) 15 SEE RESULTS BELOW [id number] ON TRANSFUSED 09/15/18 [id number] 16 Because ethnic data is not always readily available, this report includes an eGFR for both -Americans and non- Americans. The National Kidney Disease Education Program (NKDEP) does not endorse the use of the MDRD equation for patients that are not between the ages of 18 and 70, are , have extremes of body size, muscle mass, or nutritional status, or are non- or non-. According to the National Kidney Foundation, irrespective of diagnosis, the stage of the disease is based on the level of kidney function: Stage Description GFR(mL/min/1.73 m(2)) 1 Kidney damage with normal or decreased GFR 90 2 Kidney damage with mild decrease in GFR 60-89 3 Moderate decrease in GFR 30-59 4 Severe decrease in GFR 15-29 5 Kidney failure <15 (or dialysis) 17 Because ethnic data is not always readily available, this report includes an eGFR for both -Americans and non- Americans. The National Kidney Disease Education Program (NKDEP) does not endorse the use of the MDRD equation for patients that are not between the ages of 18 and 70, are , have extremes of body size, muscle mass, or nutritional status, or are non- or non-. According to the National Kidney Foundation, irrespective of diagnosis, the stage of the disease is based on the level of kidney function: Stage Description GFR(mL/min/1.73 m(2)) 1 Kidney damage with normal or decreased GFR 90 2 Kidney damage with mild decrease in GFR 60-89 3 Moderate decrease in GFR 30-59 4 Severe decrease in GFR 15-29 5 Kidney failure <15 (or dialysis) 18 Consistent with Previous Results Reported on 08/11/18 19 Consistent with Previous Results Reported on 06/23/18 20 Because ethnic data is not always readily available, this report includes an eGFR for both -Americans and non- Americans. The National Kidney Disease Education Program (NKDEP) does not endorse the use of the MDRD equation for patients that are not between the ages of 18 and 70, are , have extremes of body size, muscle mass, or nutritional status, or are non- or non-. According to the National Kidney Foundation, irrespective of diagnosis, the stage of the disease is based on the level of kidney function: Stage Description GFR(mL/min/1.73 m(2)) 1 Kidney damage with normal or decreased GFR 90 2 Kidney damage with mild decrease in GFR 60-89 3 Moderate decrease in GFR 30-59 4 Severe decrease in GFR 15-29 5 Kidney failure <15 (or dialysis) 21 SEE RESULTS BELOW [id number] [facility] 08/11/18 1325 22 Consistent with Previous Results Reported on 07/13/18 23 Because ethnic data is not always readily available, this report includes an eGFR for both -Americans and non- Americans. The National Kidney Disease Education Program (NKDEP) does not endorse the use of the MDRD equation for patients that are not between the ages of 18 and 70, are , have extremes of body size, muscle mass, or nutritional status, or are non- or non-. According to the National Kidney Foundation, irrespective of diagnosis, the stage of the disease is based on the level of kidney function: Stage Description GFR(mL/min/1.73 m(2)) 1 Kidney damage with normal or decreased GFR 90 2 Kidney damage with mild decrease in GFR 60-89 3 Moderate decrease in GFR 30-59 4 Severe decrease in GFR 15-29 5 Kidney failure <15 (or dialysis) 24 Because ethnic data is not always readily available, this report includes an eGFR for both -Americans and non- Americans. The National Kidney Disease Education Program (NKDEP) does not endorse the use of the MDRD equation for patients that are not between the ages of 18 and 70, are , have extremes of body size, muscle mass, or nutritional status, or are non- or non-. According to the National Kidney Foundation, irrespective of diagnosis, the stage of the disease is based on the level of kidney function: Stage Description GFR(mL/min/1.73 m(2)) 1 Kidney damage with normal or decreased GFR 90 2 Kidney damage with mild decrease in GFR 60-89 3 Moderate decrease in GFR 30-59 4 Severe decrease in GFR 15-29 5 Kidney failure <15 (or dialysis) 25 Because ethnic data is not always readily available, this report includes an eGFR for both -Americans and non- Americans. The National Kidney Disease Education Program (NKDEP) does not endorse the use of the MDRD equation for patients that are not between the ages of 18 and 70, are , have extremes of body size, muscle mass, or nutritional status, or are non- or non-. According to the National Kidney Foundation, irrespective of diagnosis, the stage of the disease is based on the level of kidney function: Stage Description GFR(mL/min/1.73 m(2)) 1 Kidney damage with normal or decreased GFR 90 2 Kidney damage with mild decrease in GFR 60-89 3 Moderate decrease in GFR 30-59 4 Severe decrease in GFR 15-29 5 Kidney failure <15 (or dialysis) 26 SEE RESULT BELOW Name: CHRISTOPHER POWELLEDIE : [address]: Gray Bailey MD Acct: [id number] Unit: [id number] AGE: 83 Location: [place] [address] Re07/11/18 SEX: F Status: ADM IN SPEC: [id number] JORDAN: 07/10/18 [facility] DR: Dario Glass MD REQ: [id number] RECD: 07/10/18 STATUS: COMP TANIA DR: Lucio Sandoval MD _ SOURCE: URINE SPDESC: ORDERED: Urine Culture Procedure Result Reported Site Urine Culture Final 07/12/18- 1556 ML No growth of clinically significant organisms * ML - Main Lab . END OF REPORT DEPARTMENT OF PATHOLOGY, [address] [place] [address] Jason Leyva M.D. Director [facility] # [id number] 27 Result TnIDx:0.05 Called to [id number] at: 19:59:46 by:[id number] Read back by: [id number] Troponin-I testing on Plasma Separator Tubes (PST) has a known false positive rate of 0.20-0.40%. All positive troponins reflex immediately to secondary confirmatory testing. Using the CasmulI 800 Access Immunoassay systems, the 99th percentile upper reference limit was demonstrated to be < 0.03 ng/mL. 28 Because ethnic data is not always readily available, this report includes an eGFR for both -Americans and non- Americans. The National Kidney Disease Education Program (NKDEP) does not endorse the use of the MDRD equation for patients that are not between the ages of 18 and 70, are , have extremes of body size, muscle mass, or nutritional status, or are non- or non-. According to the National Kidney Foundation, irrespective of diagnosis, the stage of the disease is based on the level of kidney function: Stage Description GFR(mL/min/1.73 m(2)) 1 Kidney damage with normal or decreased GFR 90 2 Kidney damage with mild decrease in GFR 60-89 3 Moderate decrease in GFR 30-59 4 Severe decrease in GFR 15-29 5 Kidney failure <15 (or dialysis) 29 [facility] Severe Sepsis and Septic Shock Management Bundle Measure requires all lactic acids initially measuring >2.0 mmol/L be repeated. 30 Consistent with Previous Results Reported on 06/30/18 31 CONFIRMED WITH PLATELET ESTIMATE CONSISTENT WITH PREVIOUS RESULTS REPORTED ON 06/16/18 32 *Ascorbic acid is present which may interfere with detection of blood. 33 Because ethnic data is not always readily available, this report includes an eGFR for both -Americans and non- Americans. The National Kidney Disease Education Program (NKDEP) does not endorse the use of the MDRD equation for patients that are not between the ages of 18 and 70, are , have extremes of body size, muscle mass, or nutritional status, or are non- or non-. According to the National Kidney Foundation, irrespective of diagnosis, the stage of the disease is based on the level of kidney function: Stage Description GFR(mL/min/1.73 m(2)) 1 Kidney damage with normal or decreased GFR 90 2 Kidney damage with mild decrease in GFR 60-89 3 Moderate decrease in GFR 30-59 4 Severe decrease in GFR 15-29 5 Kidney failure <15 (or dialysis) 34 Because ethnic data is not always readily available, this report includes an eGFR for both -Americans and non- Americans. The National Kidney Disease Education Program (NKDEP) does not endorse the use of the MDRD equation for patients that are not between the ages of 18 and 70, are , have extremes of body size, muscle mass, or nutritional status, or are non- or non-. According to the National Kidney Foundation, irrespective of diagnosis, the stage of the disease is based on the level of kidney function: Stage Description GFR(mL/min/1.73 m(2)) 1 Kidney damage with normal or decreased GFR 90 2 Kidney damage with mild decrease in GFR 60-89 3 Moderate decrease in GFR 30-59 4 Severe decrease in GFR 15-29 5 Kidney failure <15 (or dialysis) 35 Because ethnic data is not always readily available, this report includes an eGFR for both -Americans and non- Americans. The National Kidney Disease Education Program (NKDEP) does not endorse the use of the MDRD equation for patients that are not between the ages of 18 and 70, are , have extremes of body size, muscle mass, or nutritional status, or are non- or non-. According to the National Kidney Foundation, irrespective of diagnosis, the stage of the disease is based on the level of kidney function: Stage Description GFR(mL/min/1.73 m(2)) 1 Kidney damage with normal or decreased GFR 90 2 Kidney damage with mild decrease in GFR 60-89 3 Moderate decrease in GFR 30-59 4 Severe decrease in GFR 15-29 5 Kidney failure <15 (or dialysis) 36 Because ethnic data is not always readily available, this report includes an eGFR for both -Americans and non- Americans. The National Kidney Disease Education Program (NKDEP) does not endorse the use of the MDRD equation for patients that are not between the ages of 18 and 70, are , have extremes of body size, muscle mass, or nutritional status, or are non- or non-. According to the National Kidney Foundation, irrespective of diagnosis, the stage of the disease is based on the level of kidney function: Stage Description GFR(mL/min/1.73 m(2)) 1 Kidney damage with normal or decreased GFR 90 2 Kidney damage with mild decrease in GFR 60-89 3 Moderate decrease in GFR 30-59 4 Severe decrease in GFR 15-29 5 Kidney failure <15 (or dialysis) 37 Platelet count confirmed by estimate 38 Consistent with Previous Results Reported on 04/28/18 39 Because ethnic data is not always readily available, this report includes an eGFR for both -Americans and non- Americans. The National Kidney Disease Education Program (NKDEP) does not endorse the use of the MDRD equation for patients that are not between the ages of 18 and 70, are , have extremes of body size, muscle mass, or nutritional status, or are non- or non-. According to the National Kidney Foundation, irrespective of diagnosis, the stage of the disease is based on the level of kidney function: Stage Description GFR(mL/min/1.73 m(2)) 1 Kidney damage with normal or decreased GFR 90 2 Kidney damage with mild decrease in GFR 60-89 3 Moderate decrease in GFR 30-59 4 Severe decrease in GFR 15-29 5 Kidney failure <15 (or dialysis) 40 Because ethnic data is not always readily available, this report includes an eGFR for both -Americans and non- Americans. The National Kidney Disease Education Program (NKDEP) does not endorse the use of the MDRD equation for patients that are not between the ages of 18 and 70, are , have extremes of body size, muscle mass, or nutritional status, or are non- or non-. According to the National Kidney Foundation, irrespective of diagnosis, the stage of the disease is based on the level of kidney function: Stage Description GFR(mL/min/1.73 m(2)) 1 Kidney damage with normal or decreased GFR 90 2 Kidney damage with mild decrease in GFR 60-89 3 Moderate decrease in GFR 30-59 4 Severe decrease in GFR 15-29 5 Kidney failure <15 (or dialysis) 41 Because ethnic data is not always readily available, this report includes an eGFR for both -Americans and non- Americans. The National Kidney Disease Education Program (NKDEP) does not endorse the use of the MDRD equation for patients that are not between the ages of 18 and 70, are , have extremes of body size, muscle mass, or nutritional status, or are non- or non-. According to the National Kidney Foundation, irrespective of diagnosis, the stage of the disease is based on the level of kidney function: Stage Description GFR(mL/min/1.73 m(2)) 1 Kidney damage with normal or decreased GFR 90 2 Kidney damage with mild decrease in GFR 60-89 3 Moderate decrease in GFR 30-59 4 Severe decrease in GFR 15-29 5 Kidney failure <15 (or dialysis) Procedures Date Code Description Status 02/22/2015 22375000 Colonoscopy Completed Medical Devices Description No Information Available Encounters Type Date Location Provider Dx Diagnosis Office Visit 11/14/2018 11:00a Main Office Lucio Sandoval M.D. R53.83 Other fatigue C22.8 Malignant neoplasm of liver, primary, unspecified as to type F41.1 Generalized anxiety disorder E03.9 Hypothyroidism, unspecified Z23 Encounter for immunization N32.81 Overactive bladder M25.552 Pain in left hip Z41.8 Encntr for oth proc for purpose oth than [facility] Office Visit 08/12/2018 3:00p Main Office Lucio Sandoval L03.031 Cellulitis of M.D. right toe Office Visit 07/29/2018 4:00p Main Office Lucio Sandoval R53.83 Other fatigue Samia R06.83 Snoring C22.8 Malignant neoplasm of liver, primary, unspecified as to type R60.0 Localized edema E03.9 Hypothyroidism, unspecified F41.1 Generalized anxiety disorder Z92.21 Personal history of antineoplastic chemotherapy Assessments Date Code Description Provider 11/14/2018 R53.83 Other Lucio Loja M.D. 11/14/2018 C22.8 Malignant neoplasm of liver, primary, Lucio Sandoval M.D. unspecified as to type 11/14/2018 F41.1 Generalized anxiety disorder Lucio Sandoval M.D. 11/14/2018 E03.9 Hypothyroidism, unspecified Lucio Sandoval M.D. 11/14/2018 Z23 Encounter for immunization Lucio Sandoval M.D. 11/14/2018 N32.81 Overactive bladder Lucio Sandoval M.D. 11/14/2018 M25.552 Pain in left hip Lucio Sandoval M.D. 11/14/2018 Z41.8 Encounter for other procedures for purposes Lucio Sandoval M.D. other than [facility] 08/12/2018 L03.031 Cellulitis of right toe Lucio Sandoval M.D. 07/29/2018 R53.83 Other fatigue Lucio Sandoval M.D. 07/29/2018 R06.83 Snoring uLcio Sandoval M.D. 07/29/2018 C22.8 Malignant neoplasm of liver, primary, Lucio Sandoval M.D. unspecified as to type 07/29/2018 R60.0 Localized edema Lucio Sandoval M.D. 07/29/2018 E03.9 Hypothyroidism, unspecified Lucio Sandoval M.D. 07/29/2018 F41.1 Generalized anxiety disorder Lucio Sandoval M.D. 07/29/2018 Z92.21 Personal history of antineoplastic Lucio Sandoval M.D. chemotherapy Plan of Treatment Future Appointment(s):12/28/2018 2:45 pm - Lucio Sandoval M.D. at Main [facility]9211/14/2018 - Lucio Sandoval M.D.R53.83 Other epjlrqiF13.8 Malignant neoplasm of liver, primary, unspecified as to typeF41.1 Generalized anxiety disorderNew Medication:Buspirone HCL 5 mg - 1 by mouth twice a day for anxiety; increase to 1.5 pills 2x/day (or 1 pill 3x/day) after 2wksFollow up:RTO 6-7 pogxnM43.9 Hypothyroidism, [id number] Encounter for immunizationComments: Encouraged flu vaccine wc was accepted. VIS provided.N32.81 Overactive bladderNew Medication:Oxybutynin Chloride 5 mg - take one tablet by mouth 3x/ day for reducing urgency and associated zbcgkdvrbntqK95.552 Pain in left hipNew Medication:Tramadol HCL 50 mg - 1 tablet by mouth every 4 hours as needed for severe painComments:I-stop checked, reference #: [id number] Encounter for other procedures for purposes other than remedying health state Functional Status Description No Information Available Mental Status Description No Information Available Referrals Refer to Reason for Referral Status Appt [facility] 83yo w/ fatigue, non restorative sleep, snoring. While Closed 08/22/2018 she has other reasons for profound fatigue (cholangiocarcinoma), we are requesting eval for possible sleep apnea. [facility] [address], [address] [place] [address] [phone]
--- NOTE | 2018-12-14 00:40 | ED ---
Head Injury - HPI Summary HPI Summary: 83-year-old female presents with head injury today. States she was in the doctor's office and she had ended up falling and landing on her head and her right hip. She is able to ambulate. No numbness or tingling. fall was mechanical fall. She denies any chest pain or shortness breath. No dizziness. Denies any headache. No nausea and vomiting. Has a contusion noted to head. not on blood thinners. Has a history of cancer. no LOC. - History Of Current Complaint Chief Complaint: EDHeadInjury Stated Complaint: HEAD INJURY PER PT Time Seen by Provider: 12/14/18 00:24 Hx Last Menstrual Period: post menopause Pain Intensity: 0 - Allergies/Home Medications Allergies/Adverse Reactions: Allergies Allergy/AdvReac Type Severity Reaction Status Date / Time latex Allergy Severe Rash And Verified 12/13/18 23:14 Itching Perfume Allergy Severe Vomiting Verified 12/13/18 23:14 phenylbutazone Allergy Severe Swelling Verified 12/13/18 23:14 Of Face,Lips,& Throat Sulfa (Sulfonamide Allergy Intermediate See Comment Verified 12/13/18 23:14 Antibiotics) Adhesive Tape Allergy Rash Verified 12/13/18 23:14 alcohol Allergy Tingling Verified 12/13/18 23:14 cat dander Allergy Sneezing Verified 12/13/18 23:14 dog dander Allergy Sneezing Verified 12/13/18 23:14 hops Allergy Tingling Verified 12/13/18 23:14 lactose Allergy GI Upset Verified 12/13/18 23:14 cris Allergy Tingling Verified 12/13/18 23:14 Milk Containing Products Allergy GI Upset Verified 12/13/18 23:14 silver Allergy Rash And Verified 12/13/18 23:14 [From Tegaderm AG Mesh] Itching tomato Allergy Rash And Verified 12/13/18 23:14 Itching soy AdvReac Intermediate See Comment Verified 12/13/18 23:14 dairy Allergy Intermediate GI Upset Uncoded 01/31/18 10:19 PMH/Surg Hx/FS Hx/Imm Hx Endocrine/Hematology History: Reports: Hx Thyroid Disease Denies: Hx Diabetes Cardiovascular History: Denies: Hx Congestive Heart Failure, Hx Hypertension, Hx Pacemaker/ICD Respiratory History: Reports: Other Respiratory Problems/Disorders - LUNG BIOPSY 11/23/16 Denies: Hx Asthma, Hx Chronic Obstructive Pulmonary Disease (COPD) GI History: Reports: Hx Gastroesophageal Reflux Disease - on meds, Hx Ulcer - 1990 History: Denies: Hx Dialysis, Hx Renal Disease Musculoskeletal History: Reports: Hx Arthritis Sensory History: Reports: Hx Contacts or Glasses Denies: Hx Hearing Aid Opthamlomology History: Reports: Hx Contacts or Glasses Psychiatric History: Reports: Hx Anxiety Denies: Hx Panic Disorder - Cancer History Cancer Type, 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 RT KNEE ARTHROSCOPIC 2003. VITRECTOMY left eye 01/2014, lung biopsy right. PORT 2016. LIVER BIOPSY 12/2015 Hx Anesthesia Reactions: No - Immunization History Date of Tetanus Vaccine: up to date, 2009 Date of Influenza Vaccine: 2015 Infectious Disease History: No Infectious Disease History: Reports: Hx Hepatitis - type A when 19 Denies: Hx Human Immunodeficiency Virus (HIV), History Other Infectious Disease, Traveled Outside the [place] in Last 30 Days - Family History Known Family History: Positive: Non-Contributory Negative: Diabetes Family History: Denies FHx of breast cancer - Social History Alcohol Use: None Hx Substance Use: No Substance Use Type: Reports: None Hx Tobacco Use: Yes Smoking Status (MU): Former Smoker Type: Cigarettes Amount Used/How Often: social smoker Have You Smoked in the Last Year: No Review of Systems Negative: Fever Negative: Chest Pain Negative: Shortness Of Breath Negative: Myalgia - no hip pain Positive: Bruising Negative: Headache All Other Systems Reviewed And Are Negative: Yes Physical Exam Triage Information Reviewed: Yes Vital Signs On Initial Exam: Initial Vitals Temp Pulse Resp BP Pulse Ox 98.0 F 78 18 135/72 98 12/13/18 23:01 12/13/18 23:01 12/13/18 23:01 12/13/18 23:01 12/13/18 23:01 Vital Signs Reviewed: Yes Appearance: Positive: Well-Appearing Skin: Positive: Warm, Dry, Other - contusion noted to posterior head, ecchymosis to right hip Eyes: Positive: Normal, EOMI, FUAD, Conjunctiva Clear ENT: Positive: Normal ENT inspection, Pharynx normal, TMs normal Neck: Positive: Other: - nontender neck, full ROM neck Respiratory/Lung Sounds: Positive: Clear to Auscultation, Breath Sounds Present Cardiovascular: Positive: Normal, RRR Musculoskeletal: Positive: Strength/ROM Intact - right hip, Other - good pulses , sensation grossly intact Neurological: Positive: Sensory/Motor Intact, Alert, Oriented to Person Place, Time, CN Intact II-III Psychiatric: Positive: Normal - Etienne Coma Scale Best Eye Response: 4 - Spontaneous Best Motor Response: 6 - Obeys Commands Best Verbal Response: 5 - Oriented Coma Scale Total: 15 Procedures - Sedation Patient Received Moderate/Deep Sedation with Procedure: No Diagnostics - Vital Signs Vital Signs Temp Pulse Resp BP Pulse Ox 12/14/18 00:09 78 121/63 99 12/13/18 23:01 98.0 F 78 18 135/72 98 - Laboratory Lab Statement: Any lab studies that have been ordered have been reviewed, and results considered in the medical decision making process. - Radiology femur, hip Radiology Interpretation Completed By: ED Physician Summary of Radiographic Findings: no fx - CT brain CT Interpretation Completed By: Radiologist Summary of CT Findings: IMPRESSION: 1. There is age-related diffuse cerebral and cerebellar volume loss and chronic microvascular ischemic disease. 2. No acute intracranial pathology. Head Injury Course/Dx Course Of Treatment: 83-year-old female presents with head injury today. States she was in the doctor's office and she had ended up falling and landing on her head and her right hip. She is able to ambulate. No numbness or tingling. fall was mechanical fall. She denies any chest pain or shortness breath. No dizziness. Denies any headache. No nausea and vomiting. Has a contusion noted to head. not on blood thinners. Has a history of cancer. On exam has a normal neuro exam. Is alert and oriented. Has ecchymosis noted to right hip. Full range of motion neurovascular intact. CT brain normal. X-ray read by me as normal. Told to follow up primary. Patient understands and agrees with plan. - Diagnoses Differential Diagnosis/HQI/PQRI: Concussion Without LOC, Contusion, Intracranial Bleed Provider Diagnoses: Head injury, Injury of right hip Discharge ED - Sign-Out/Discharge Documenting (check all that apply): Patient Departure - Discharge Plan Condition: Good Disposition: HOME Patient Education Materials: Head Injury (ED), Contusion in Adults (ED) Referrals: Lucio Sandoval MD [Primary Care Provider] - Additional Instructions: apply ice Take tyenlol as needed for pain follow up with primary within a week Return to ED if develop any new or worsening symptoms - Billing Disposition and Condition Condition: GOOD Disposition: Home
[2018-12-14 01:55] VITALS: BP 131/72
== END 2018-12-14 01:53 | disposition home or self-care (01) ==
LOC: ED 22:57
DX: S09.90XA Unspecified injury of head, initial encounter (principal); S79.911A Unspecified injury of right hip, initial encounter; W19.XXXA Unspecified fall, initial encounter; Y92.531 Health care provider office as the place of occurrence of the external cause; E03.9 Hypothyroidism, unspecified; K21.9 Gastro-esophageal reflux disease without esophagitis; F41.9 Anxiety disorder, unspecified; Z87.891 Personal history of nicotine dependence; Z79.890 Hormone replacement therapy; Z79.899 Other long term (current) drug therapy; Z88.2 Allergy status to sulfonamides; Z88.8 Allergy status to other drugs, medicaments and biological substances; Z91.040 Latex allergy status
CPT/HCPCS: 70450; 99282